=== PATIENT | female | born 1990 | race Caucasian/White ===

== ENCOUNTER 2017-07-11 08:59 | Inpatient (IN) | payer OTHER ==
[2017-07-11 09:17] VITALS: BMI 30.7
--- NOTE | 2017-07-11 09:35 | PDOC ---
History of Present Illness - General Chief Complaint: Vaginal Bleeding Stated Complaint: VAGINAL BLEEDING Time Seen by Provider: 07/11/17 09:26 - History of Present Illness Initial Comments: 27 year old female with history of anemia, prescription pill abuse (on suboxone currently), gastric bypass (2004) presenting after an episode of heavy rectal bleeding and syncope. Per her mother who witnessed the event, the patient said she had to get to the bathroom and prior to arrival to the bathroom released copious bloody stool and syncopized. She did not hit her head. She states she has been drug free for many years. She has a very poor diet at baseline eating mostly "sugary drinks and candy". EMS note on arrical was that she had pressures of 70s systolic in the field which came up after a liter on normal saline. Her pressures were in the 120s on presentation. She has also complained of a pruritic thigh rash bilaterally for the past few days as well. Of note, she has had URI symptoms with vomiting, nausea, myalgias and fevers over the past 3-4 days along with her children. Denies any diarrhea, chest pain, SOB, or syncope before today. Her PCP is [facility]. 07/11/17 09:49 Past History - Past Medical History Allergies/Adverse Reactions: Allergies Allergy/AdvReac Type Severity Reaction Status Date / Time morphine Allergy Severe Swelling Verified 07/11/17 09:12 shellfish derived Allergy Severe Swelling Verified 07/11/17 09:12 enoxaparin [From Lovenox] Allergy Verified 07/11/17 09:12 cats Allergy Uncoded 07/11/17 09:12 Home Medications: Ambulatory Orders Ascorbate Calcium [Vitamin C] 500 mg PO BID 07/11/17 Buprenorphine HCl/Naloxone HCl [Suboxone 12 mg-3 mg Sl Film] 1 each SL BID 07/11 Calcium Carbonate [Calcium] 500 mg PO BID 07/11/17 Cetirizine HCl [All Day Allergy] 10 mg PO DAILY 07/11/17 Cholecalciferol (Vitamin D3) [Vitamin D3] 1,000 unit PO DAILY 07/11/17 Clonazepam [Klonopin] 1 mg PO TID 07/11/17 Cyanocobalamin [Vitamin B12 -] 100 mcg PO DAILY 07/11/17 Ferrous Sulfate 325 mg PO TID 07/11/17 Nicotine [Nicotine Patch 21 mg/24 hr] 1 each TD PRN 07/11/17 Pnv No.95/Ferrous Fum/Folic AC [ Vitamin Tablet] 1 each PO DAILY Ranitidine [Zantac -] 150 mg PO BID 07/11/17 Sennosides [Senna] 8.6 mg PO TID 07/11/17 Thiamine HCl 0 mg PO DAILY 07/11/17 Trazodone HCl 50 mg PO HS 07/11/17 Anemia: Yes Asthma: No Cancer: No Cardiac Disorders: No COPD: No Diabetes: No HTN: No Psychiatric Problems: Yes (ANXIETY) Seizures: No Thyroid Disease: No - Surgical History Cholecystectomy: Yes GI Surgery: Yes (BYPASS) - Reproductive History (#): 1 Para: 0 Cervical CA: No Dysfunctional Uterine Bleeding: No Ectopic : No Endometrial CA: No Endometriosis: No Ovarian CA: No PID: No Polycystic Ovaries: No Therapeutic (s) & number: No (first ) Tubal Ligation: No Spontaneous : 0 Uterine Fibroids: No Oophorectomy: No - Suicide/Smoking/Psychosocial Hx Smoking History: Current every day smoker Have you smoked in the past 12 months: Yes Number of Cigarettes Smoked Daily: 7 Information on smoking cessation initiated: No Hx Alcohol Use: No Drug/Substance Use Hx: Yes Hx Substance Use Treatment: Yes Review of Systems - Review of Systems Constitutional: Yes: Fever. No: Chills, Diaphoresis HEENTM: No: Blurred Vision Respiratory: Yes: Cough. No: Shortness of Breath, Wheezing Cardiac (ROS): No: Chest Pain, Irregular Heart Rate, Chest Tightness ABD/GI: Yes: Nausea, Vomiting. No: Diarrhea : No: Dysuria, Discharge Musculoskeletal: No: Back Pain, Joint Pain Integumentary: Yes: Lesions, Pruritus. No: Bruising, Lumps Neurological: No: Headache, Numbness *Physical Exam - Vital Signs Last Vital Signs Temp Pulse Resp BP Pulse Ox 68 18 120/100 100 07/11/17 09:12 07/11/17 09:12 07/11/17 09:12 07/11/17 09:12 - Physical Exam General Appearance: Yes: Nourished, Appropriately Dressed, Other (Very pale appearing.). No: Apparent Distress HEENT: positive: EOMI, ARNALDO, Normal ENT Inspection Neck: positive: Trachea midline, Normal Thyroid, Supple. negative: Tender, Rigid Respiratory/Chest: positive: Lungs Clear, Normal Breath Sounds. negative: Chest Tender, Respiratory Distress, Accessory Muscle Use Cardiovascular: positive: Regular Rhythm, Tachycardia. negative: Regular Rate Female Pelvic Exam: positive: normal external exam, cervical os closed, normal adnexa, normal size ovaries. negative: vaginal bleeding Rectal Exam: positive: normal rectal tone, melena, heme positive stool, hemorrhoids. negative: heme negative stool Musculoskeletal: negative: Normal Inspection (States that she cannot move her lower extemtieis but sensation completely intact nd has good muscle tone.) Integumentary: positive: Dry, Pale, Cold. negative: Normal Color, Warm Neurologic: positive: Fully Oriented, Alert, Normal Mood/Affect. negative: Motor Strength 5/5 (Per above) ED Treatment Course - LABORATORY CBC & Chemistry Diagram: 07/11/17 09:30 07/11/17 09:30 Medical Decision Making - Medical Decision Making 27 year old female with concern for UGIB bleeding given vaginal exam WNL and rectla exam demonstrating melena and heme positive. Concern for UGIB given history of gastric bypass (true bypass) and melanic stools. HgB 8.1 down from 9.6 so given 1 unit PRBC, 500 NS (+ 1 L given in EMS), with roughly stable vitals (pressures in low 100s and HR 90s-low 100s). Dr. Krause scoped the patient and she went up to the ICU. 07/11/17 15:46 *DC/Admit/Observation/Transfer Diagnosis at time of Disposition: UGIB (upper gastrointestinal bleed) - Discharge Dispostion Admit: Yes - Referrals - Patient Instructions - Post Discharge Activity
[2017-07-11 09:43] LABS: BASO % 0.4 % (0-2.0); EOS % 1.6 % (0-4.5); HEMATOCRIT 24.6 % (32.4-45.2); HEMOGLOBIN 8.1 GM/dL (10.7-15.3); LYMPH % 30.5 % (8-40); MCH 27.8 pg (25.7-33.7); MCHC 32.9 g/dl (32.0-36.0); MEAN CELL VOLUME 84.6 fl (80-96); MEAN PLT VOLUME 7.9 fl (7.5-11.1); MONO % 5.2 % (3.8-10.2); NEUT % 62.3 % (42.8-82.8); PLATELET COUNT 262 K/MM3 (134-434); RBC 2.91 M/mm3 (3.60-5.2); RDW 12.1 % (11.6-15.6); WHITE BLOOD COUNT 7.8 K/mm3 (4.0-10.0)
[2017-07-11 09:51] LABS: URINE APPEARANCE CLEAR; URINE BILIRUBIN NEGATIVE (<2.0 mg/dL); URINE BLOOD NEGATIVE (NEGATIVE); URINE COLOR YELLOW; URINE GLUCOSE (UA) NEGATIVE (NEGATIVE); URINE KETONE NEGATIVE (NEGATIVE); URINE LEUK ESTERASE NEGATIVE (NEGATIVE); URINE NITRITE NEGATIVE (NEGATIVE); URINE PROTEIN NEGATIVE (NEGATIVE); URINE UROBILINOGEN NEGATIVE mg/dL (0.2-1.0)
[2017-07-11 09:58] LABS: INR 1.15 (0.82-1.09)
--- NOTE | 2017-07-11 10:04 | PDOC ---
Attending Attestation - Medical Decision Making 07/11/17 11:[address] Krause at 09:48, 10:22, 11:19. Call was returned promptly and case discussed. Documentation prepared by Soraya Healy, acting as resident medical officer for Tasha Coburn MD. <Soraya Healy - Last Filed: 07/11/17 11:30> - Resident Resident Name: Bri Grant - ED Attending Attestation I have performed the following: I have examined & evaluated the patient, The case was reviewed & discussed with the resident, I agree w/resident's findings & plan, Exceptions are as noted - HPI HPI: 07/11/17 09:47 27-year-old female with a history of gastric bypass surgery in 2004, anemia, distant norco abuse now on suboxone BIBEMS to the emergency department with syncopal episode in the setting of bleeding. Patient reports she's been lightheaded since yesterday. This morning, pt woke up and felt that she needed to have a bowel movement, however on her way to the bathroom became very lightheaded, collapsed and lost consciousness. No head strike. EMS was activated , and patient was found to be hypotensive to 70/20 with copious amounts of dark blood and clots in her underwear. Pt was given 1L NS by EMS, with recovery of her blood pressure to 120/100 on arrival to the emergency department. Here, the patient is pale with malodorous blood all over her lower extremities. No active bleeding noticed. Pelvic exam done by Dr. Grant reveals no blood/foreign body in vaginal vault but melanotic blood in the rectum. No current active bleeding. Pt reports feeling cold and thirsty at this time. Pt denies abd pain, CP, SOB, fevers, chills, vaginal bleeding. States she uses advil almost daily. Reports she just had a negative test. No similar episodes of bleeding before. - Physicial Exam PE: 07/11/17 10:04 agree with resident exam - Critical Care Time Total Critical Care Time: 90 Critical Care Statement: The care of this patient involved high complexity decision making to prevent further life threatening deterioration of the patient 's condition and/or to evaluate & treat vital organ system(s) failure or risk of failure. - Medical Decision Making 07/11/17 10:04 27-year-old female with a history of gastric bypass, anemia presents emergency Department with likely GI bleed. Vitals in the field remarkable for hypotension , however blood pressure is 100/60. Rash on LE c/f thrombocytopenia as well. DDx includes UGIB 2/2 NSAIDS vs DIC (maybe in setting of ) vs severe anemia given hx gastric bypass. Plan: -labs -transfuse, not emergently at this time -monitor -PPI -GI c/s -admit <Tasha Coburn - Last Filed: 07/11/17 22:49>
[2017-07-11 10:17] LABS: ACETAMINOPHEN 4.775 ug/mL; ALBUMIN 2.4 g/dl (3.4-5.0); ANION GAP 7 (8-16); BLOOD UREA NITROGEN 15 mg/dL (7-18); CALCIUM 7.2 mg/dL (8.5-10.1); CHLORIDE 111 mmol/L (98-107); CO2 28 mmol/L (21-32); CREATININE 0.5 mg/dL (0.55-1.02); GLUCOSE,RANDOM 127 mg/dL (74-106); POTASSIUM 4.4 mmol/L (3.5-5.1); SALICYLATE < 1.700 mg/dL; SGOT/AST 20 U/L (15-37); SGPT/ALT 24 U/L (12-78); SODIUM 146 mmol/L (136-145); TOT PROT 4.5 g/dl (6.4-8.2)
[2017-07-11 10:20] LABS: ALK PHOS 40 U/L (45-117)
[2017-07-11 10:23] LABS: BILIRUBIN,TOTAL < 0.1 mg/dL (0.2-1.0)
[2017-07-11] MEDS ORDERED: SODIUM CHLORIDE 0.9% 500 ML INFUS.BAG IV ONE (10:42)
[2017-07-11 11:02] LABS: URINE AMPHETAMINES NEGATIVE ng/ml (CUTOFF=500); URINE BARBITURATES NEGATIVE ng/ml (CUTOFF=200); URINE BENZODIAZEPINES NEGATIVE ng/ml (CUTOFF=200)
[2017-07-11 11:03] LABS: COCAINE, UR NEGATIVE ng/ml (CUTOFF=300); METHADONE, UR NEGATIVE ng/ml (CUTOFF=300); OPIATES, URI NEGATIVE ng/ml (CUTOFF=300); PHENCYCLIDINE,URINE NEGATIVE ng/ml (CUTOFF=25)
[2017-07-11 11:05] LABS: LDH 123 U/L (84-246)
[2017-07-11] MEDS ORDERED: PANTOPRAZOLE SODIUM 40 MG VIAL IVPUSH ONE (11:19)
[2017-07-11] MEDS ORDERED: PANTOPRAZOLE SODIUM 40 MG/100 ML BAG IVPB ONE (11:24)
[2017-07-11] MEDS ORDERED: OCTREOTIDE ACETATE 1,200 MCG in DEXTROSE 5%-WATER - 488 ML IVPB SCH (12:00)
--- NOTE | 2017-07-11 12:20 | CON.GI ---
Consult Consult Specialty:: GI Referred by:: ED Reason for Consultation:: GI bleeding - History of Present Illness History of Present Illness: A 27F with remote hx of gastric bypass for weight loss presents with overnight hx of ?hematochezia, passing out on the way to the bathroom and, documented by EMT, hypotention. Reports lower abdominal crampy pain. Cannot say for sure if bleeding per vagina, or rectum. No nausea, vomiting, hematemesis, jaundice, diarrhea, fever, chills. No history of marginal ulcers, issues with GI since after gastric bypass. EGD ~2011 revealed no abnormalities, per patient. Hx of chronic anemia, per pt's mother. Hx of frequent NSAIDs use, substance abuse. Heme positive stools Hgb 8 g/l, normocytic, normochromic BUN normal - History Source History Provided By: Patient, Family Member, Medical Record - Past Medical History [employer]: Yes: Migraine Gastrointestinal: Yes: Gastritis, Peptic Ulcer Disease ...LMP: 10/20/14 Psych: Yes: Addictions, Anxiety, Depression, Other (PTSD, mood disorder NOS,) Musculoskeletal: Yes: Osteoarthritis - Past Surgical History Past Surgical History: Yes: Bariatric Surgery - Alcohol/Substance Use Hx Alcohol Use: No History of Substance Use: reports: Prescription (no illicit drug use in , follow by substance abuse clinic and psych) - Smoking History Smoking history: Current every day smoker Have you smoked in the past 12 months: Yes Aproximately how many cigarettes per day: 7 - Social History Usual Living Arrangement: Alone ADL: Independent History of Recent Travel: No Home Medications - Allergies Allergies/Adverse Reactions: Allergies Allergy/AdvReac Type Severity Reaction Status Date / Time morphine Allergy Severe Swelling Verified 07/11/17 09:12 shellfish derived Allergy Severe Swelling Verified 07/11/17 09:12 enoxaparin [From Lovenox] Allergy Verified 07/11/17 09:12 cats Allergy Uncoded 07/11/17 09:12 - Home Medications Home Medications: Ambulatory Orders Ascorbate Calcium [Vitamin C] 500 mg PO BID 07/11/17 Buprenorphine HCl/Naloxone HCl [Suboxone 12 mg-3 mg Sl Film] 1 each SL BID 07/11 Calcium Carbonate [Calcium] 500 mg PO BID 07/11/17 Cetirizine HCl [All Day Allergy] 10 mg PO DAILY 07/11/17 Cholecalciferol (Vitamin D3) [Vitamin D3] 1,000 unit PO DAILY 07/11/17 Clonazepam [Klonopin] 1 mg PO TID 07/11/17 Cyanocobalamin [Vitamin B12 -] 100 mcg PO DAILY 07/11/17 Ferrous Sulfate 325 mg PO TID 07/11/17 Nicotine [Nicotine Patch 21 mg/24 hr] 1 each TD PRN 07/11/17 Pnv No.95/Ferrous Fum/Folic AC [ Vitamin Tablet] 1 each PO DAILY Ranitidine [Zantac -] 150 mg PO BID 07/11/17 Sennosides [Senna] 8.6 mg PO TID 07/11/17 Thiamine HCl 0 mg PO DAILY 07/11/17 Trazodone HCl 50 mg PO HS 07/11/17 Family Disease History - Family Disease History Family History: Unremarkable Review of Systems Findings/Remarks: as per HPI, H&P Physical Exam-GI Vital Signs: Vital Signs Temperature 98.1 F 07/11/17 12:05 Pulse Rate 64 07/11/17 12:05 Respiratory Rate 12 07/11/17 12:05 Blood Pressure 115/59 07/11/17 12:05 O2 Sat by Pulse Oximetry (%) 99 07/11/17 12:05 Constitutional: Yes: No Distress, Pallor Eyes: Yes: Conjunctiva Clear HENT: Yes: Atraumatic, Other (lip ring) Neck: Yes: Supple Cardiovascular: Yes: Regular Rate and Rhythm. No: Bradycardia, Tachycardia Respiratory: Yes: Regular Gastrointestinal Inspection: No: Ascites, Distention ...Palpate: Yes: Tenderness (lowe abdomen) ...Rectal Exam: Yes: Guaiac Positive Neurological: Yes: Alert, Oriented Labs: CBC, BMP 07/11/17 09:30 07/11/17 09:40 INR, PTT INR 1.15 (0.82-1.09) H 07/11/17 09:30 Fibrinogen 166.0 mg/dL (238-498) L 07/11/17 09:32 Laboratory Tests 07/11/17 07/11/17 07/11/17 09:30 09:30 09:30 WBC 7.8 RBC 2.91 L Hgb 8.1 L D Hct 24.6 L D MCV 84.6 MCH 27.8 MCHC 32.9 RDW 12.1 Plt Count 262 D MPV 7.9 Neutrophils % 62.3 Lymphocytes % 30.5 D Monocytes % 5.2 Eosinophils % 1.6 Basophils % 0.4 PT with INR 13.00 H INR 1.15 H Fibrinogen D-Dimer Sodium 146 H Potassium 4.4 Chloride 111 H Carbon Dioxide 28 Anion Gap 7 L BUN 15 Creatinine 0.5 L Creat Clearance w eGFR > 60 Random Glucose 127 H Specific Cove Lactic Acid Calcium 7.2 L Total Bilirubin < 0.1 L D AST 20 ALT 24 Alkaline Phosphatase 40 L LD Total Creatine Kinase 60 Troponin I < 0.02 Total Protein 4.5 L Albumin 2.4 L Beta HCG, Quant Serum , Qual Urine Color Urine Appearance Urine pH Ur Specific Cove Urine Protein Urine Glucose (UA) Urine Ketones Urine Blood Urine Nitrite Urine Bilirubin Urine Urobilinogen Ur Leukocyte Esterase Stool Occult Blood Urine Butalbital Ur Butalbital Confirm Salicylates < 1.700 Opiates Screen Urine Opiates Screen Meperidine Urine Normeperidine U Normeperidine GC/MS Urine Codeine U Codeine Confrm GC/MS Urine Morphine Morphine Confirm GC/MS Urine Hydrocodone Ur Hydrocodone (GC/MS) Urine Oxycodone Ur Oxycodone GC/MS Oxymorphone Confirm Urine Oxymorphone U Oxycodone/Oxymorphon Methadone Screen Ur Methadone Ur Methadone Confirm Ur Hydromorphone Ur Hydromorphone (GC/MS) Urine Propoxyphene U Propoxyphene/M GC/MS Acetaminophen 4.775 Barbiturate Screen Ur Barbiturates Screen Urine Barbiturates Phencyclidine Screen Ur Phencyclidine (PCP) Ur PCP Confirm (GC/MS) Amphetamines Amphetamines Grp GC/MS Ur Amphetamines Screen Urine Amphetamine Ur Amphetamines, Quant Methamphetamine Methamphetamine GC/MS MDMA (Ecstasy) Screen Urine Amobarbital Ur Amobarbital GC/MS Urine Pentobarbital U Pentobarbital GC/MS Urine Phenobarbital U Phenobarbital GC/MS Urine Secobarbital U Secobarbital GC/MS Urine Alprazolam U OH-Alprazolam GC/MS Benzodiazepines Screen U Benzodiazepines Scrn Urine Clonazepam U 7-Amino Clonazep GC/MS Ur Nordiazepam Ur Nordiazepam GC/MS Flurazepam Flurazepam Confirm Lorazepam Urine Lorazepam Ur Oxazepam U Oxazepam Confm GC/MS Urine Temazepam Ur Temazepam (GC/MS) Urine Triazolam Ur Triazolam (GC/MS) Meperidine (GC/MS) Ur Meperidine Cocaine Screen Cocaine & Metabolite Urine Cocaine Benzoylecgonine Cannabinoids Urine Cannabinoids U Marijuana (THC) Screen Urine Marijuana (THC) Urine Ethyl Alcohol Blood Type Antibody Screen Crossmatch 07/11/17 07/11/17 07/11/17 09:30 09:30 09:30 WBC RBC Hgb Hct MCV MCH MCHC RDW Plt Count MPV Neutrophils % Lymphocytes % Monocytes % Eosinophils % Basophils % PT with INR INR Fibrinogen D-Dimer Sodium Potassium Chloride Carbon Dioxide Anion Gap BUN Creatinine Creat Clearance w eGFR Random Glucose Specific Cove Lactic Acid 4.2 H* Calcium Total Bilirubin AST ALT Alkaline Phosphatase LD Total Creatine Kinase Troponin I Total Protein Albumin Beta HCG, Quant Serum , Qual Urine Color Urine Appearance Urine pH Ur Specific Cove Urine Protein Urine Glucose (UA) Urine Ketones Urine Blood Urine Nitrite Urine Bilirubin Urine Urobilinogen Ur Leukocyte Esterase Stool Occult Blood Urine Butalbital Ur Butalbital Confirm Salicylates Opiates Screen Urine Opiates Screen Meperidine Urine Normeperidine U Normeperidine GC/MS Urine Codeine U Codeine Confrm GC/MS Urine Morphine Morphine Confirm GC/MS Urine Hydrocodone Ur Hydrocodone (GC/MS) Urine Oxycodone Ur Oxycodone GC/MS Oxymorphone Confirm Urine Oxymorphone U Oxycodone/Oxymorphon Methadone Screen Ur Methadone Ur Methadone Confirm Ur Hydromorphone Ur Hydromorphone (GC/MS) Urine Propoxyphene U Propoxyphene/M GC/MS Acetaminophen Barbiturate Screen Ur Barbiturates Screen Urine Barbiturates Phencyclidine Screen Ur Phencyclidine (PCP) Ur PCP Confirm (GC/MS) Amphetamines Amphetamines Grp GC/MS Ur Amphetamines Screen Urine Amphetamine Ur Amphetamines, Quant Methamphetamine Methamphetamine GC/MS MDMA (Ecstasy) Screen Urine Amobarbital Ur Amobarbital GC/MS Urine Pentobarbital U Pentobarbital GC/MS Urine Phenobarbital U Phenobarbital GC/MS Urine Secobarbital U Secobarbital GC/MS Urine Alprazolam U OH-Alprazolam GC/MS Benzodiazepines Screen U Benzodiazepines Scrn Urine Clonazepam U 7-Amino Clonazep GC/MS Ur Nordiazepam Ur Nordiazepam GC/MS Flurazepam Flurazepam Confirm Lorazepam Urine Lorazepam Ur Oxazepam U Oxazepam Confm GC/MS Urine Temazepam Ur Temazepam (GC/MS) Urine Triazolam Ur Triazolam (GC/MS) Meperidine (GC/MS) Ur Meperidine Cocaine Screen Cocaine & Metabolite Urine Cocaine Benzoylecgonine Cannabinoids Urine Cannabinoids U Marijuana (THC) Screen Urine Marijuana (THC) Urine Ethyl Alcohol Blood Type A POSITIVE Cancelled Antibody Screen Negative Cancelled Crossmatch See Detail 07/11/17 07/11/17 07/11/17 09:32 09:32 09:40 WBC RBC Hgb Hct MCV MCH MCHC RDW Plt Count MPV Neutrophils % Lymphocytes % Monocytes % Eosinophils % Basophils % PT with INR INR Fibrinogen 166.0 L D-Dimer 260 Sodium Potassium Chloride Carbon Dioxide Anion Gap BUN Creatinine Cancelled Creat Clearance w eGFR Random Glucose Specific Cove Cancelled Lactic Acid Calcium Total Bilirubin AST ALT Alkaline Phosphatase LD Total 123 Creatine Kinase Troponin I Total Protein Albumin Beta HCG, Quant < 1.0 Serum , Qual Urine Color Urine Appearance Urine pH Ur Specific Cove Urine Protein Urine Glucose (UA) Urine Ketones Urine Blood Urine Nitrite Urine Bilirubin Urine Urobilinogen Ur Leukocyte Esterase Stool Occult Blood Urine Butalbital Cancelled Ur Butalbital Confirm Cancelled Salicylates Opiates Screen Urine Opiates Screen Cancelled Meperidine Cancelled Urine Normeperidine Cancelled U Normeperidine GC/MS Cancelled Urine Codeine Cancelled U Codeine Confrm GC/MS Cancelled Urine Morphine Cancelled Morphine Confirm GC/MS Cancelled Urine Hydrocodone Cancelled Ur Hydrocodone (GC/MS) Cancelled Urine Oxycodone Cancelled Ur Oxycodone GC/MS Cancelled Oxymorphone Confirm Cancelled Urine Oxymorphone Cancelled U Oxycodone/Oxymorphon Cancelled Methadone Screen Ur Methadone Cancelled Ur Methadone Confirm Cancelled Ur Hydromorphone Cancelled Ur Hydromorphone (GC/MS) Cancelled Urine Propoxyphene Cancelled U Propoxyphene/M GC/MS Cancelled Acetaminophen Barbiturate Screen Ur Barbiturates Screen Cancelled Urine Barbiturates Cancelled Phencyclidine Screen Ur Phencyclidine (PCP) Cancelled Ur PCP Confirm (GC/MS) Cancelled Amphetamines Cancelled Amphetamines Grp GC/MS Cancelled Ur Amphetamines Screen Urine Amphetamine Cancelled Ur Amphetamines, Quant Cancelled Methamphetamine Cancelled Methamphetamine GC/MS Cancelled MDMA (Ecstasy) Screen Urine Amobarbital Cancelled Ur Amobarbital GC/MS Cancelled Urine Pentobarbital Cancelled U Pentobarbital GC/MS Cancelled Urine Phenobarbital Cancelled U Phenobarbital GC/MS Cancelled Urine Secobarbital Cancelled U Secobarbital GC/MS Cancelled Urine Alprazolam Cancelled U OH-Alprazolam GC/MS Cancelled Benzodiazepines Screen U Benzodiazepines Scrn Cancelled Urine Clonazepam Cancelled U 7-Amino Clonazep GC/MS Cancelled Ur Nordiazepam Cancelled Ur Nordiazepam GC/MS Cancelled Flurazepam Cancelled Flurazepam Confirm Cancelled Lorazepam Cancelled Urine Lorazepam Cancelled Ur Oxazepam Cancelled U Oxazepam Confm GC/MS Cancelled Urine Temazepam Cancelled Ur Temazepam (GC/MS) Cancelled Urine Triazolam Cancelled Ur Triazolam (GC/MS) Cancelled Meperidine (GC/MS) Cancelled Ur Meperidine Cancelled Cocaine Screen Cocaine & Metabolite Cancelled Urine Cocaine Cancelled Benzoylecgonine Cancelled Cannabinoids Cancelled Urine Cannabinoids Cancelled U Marijuana (THC) Screen Urine Marijuana (THC) Cancelled Urine Ethyl Alcohol Cancelled Blood Type Antibody Screen Crossmatch 07/11/17 07/11/17 07/11/17 09:40 09:40 10:38 WBC RBC Hgb Hct MCV MCH MCHC RDW Plt Count MPV Neutrophils % Lymphocytes % Monocytes % Eosinophils % Basophils % PT with INR INR Fibrinogen D-Dimer Sodium Potassium Chloride Carbon Dioxide Anion Gap BUN Creatinine Creat Clearance w eGFR Random Glucose Specific Cove Lactic Acid Calcium Total Bilirubin AST ALT Alkaline Phosphatase LD Total Creatine Kinase Troponin I Total Protein Albumin Beta HCG, Quant Serum , Qual Urine Color Yellow Urine Appearance Clear Urine pH 6.0 Ur Specific Cove 1.027 Urine Protein Negative Urine Glucose (UA) Negative Urine Ketones Negative Urine Blood Negative Urine Nitrite Negative Urine Bilirubin Negative Urine Urobilinogen Negative Ur Leukocyte Esterase Negative Stool Occult Blood Positive Urine Butalbital Ur Butalbital Confirm Salicylates Opiates Screen Negative Urine Opiates Screen Meperidine Urine Normeperidine U Normeperidine GC/MS Urine Codeine U Codeine Confrm GC/MS Urine Morphine Morphine Confirm GC/MS Urine Hydrocodone Ur Hydrocodone (GC/MS) Urine Oxycodone Ur Oxycodone GC/MS Oxymorphone Confirm Urine Oxymorphone U Oxycodone/Oxymorphon Methadone Screen Negative Ur Methadone Ur Methadone Confirm Ur Hydromorphone Ur Hydromorphone (GC/MS) Urine Propoxyphene U Propoxyphene/M GC/MS Acetaminophen Barbiturate Screen Negative Ur Barbiturates Screen Urine Barbiturates Phencyclidine Screen Negative Ur Phencyclidine (PCP) Ur PCP Confirm (GC/MS) Amphetamines Amphetamines Grp GC/MS Ur Amphetamines Screen Negative Urine Amphetamine Ur Amphetamines, Quant Methamphetamine Methamphetamine GC/MS MDMA (Ecstasy) Screen Negative Urine Amobarbital Ur Amobarbital GC/MS Urine Pentobarbital U Pentobarbital GC/MS Urine Phenobarbital U Phenobarbital GC/MS Urine Secobarbital U Secobarbital GC/MS Urine Alprazolam U OH-Alprazolam GC/MS Benzodiazepines Screen Negative U Benzodiazepines Scrn Urine Clonazepam U 7-Amino Clonazep GC/MS Ur Nordiazepam Ur Nordiazepam GC/MS Flurazepam Flurazepam Confirm Lorazepam Urine Lorazepam Ur Oxazepam U Oxazepam Confm GC/MS Urine Temazepam Ur Temazepam (GC/MS) Urine Triazolam Ur Triazolam (GC/MS) Meperidine (GC/MS) Ur Meperidine Cocaine Screen Negative Cocaine & Metabolite Urine Cocaine Benzoylecgonine Cannabinoids Urine Cannabinoids U Marijuana (THC) Screen Negative Urine Marijuana (THC) Urine Ethyl Alcohol Blood Type Antibody Screen Crossmatch 07/11/17 11:00 WBC RBC Hgb Hct MCV MCH MCHC RDW Plt Count MPV Neutrophils % Lymphocytes % Monocytes % Eosinophils % Basophils % PT with INR INR Fibrinogen D-Dimer Sodium Potassium Chloride Carbon Dioxide Anion Gap BUN Creatinine Creat Clearance w eGFR Random Glucose Specific Cove Lactic Acid Calcium Total Bilirubin AST ALT Alkaline Phosphatase LD Total Creatine Kinase Troponin I Total Protein Albumin Beta HCG, Quant Serum , Qual Negative Urine Color Urine Appearance Urine pH Ur Specific Cove Urine Protein Urine Glucose (UA) Urine Ketones Urine Blood Urine Nitrite Urine Bilirubin Urine Urobilinogen Ur Leukocyte Esterase Stool Occult Blood Urine Butalbital Ur Butalbital Confirm Salicylates Opiates Screen Urine Opiates Screen Meperidine Urine Normeperidine U Normeperidine GC/MS Urine Codeine U Codeine Confrm GC/MS Urine Morphine Morphine Confirm GC/MS Urine Hydrocodone Ur Hydrocodone (GC/MS) Urine Oxycodone Ur Oxycodone GC/MS Oxymorphone Confirm Urine Oxymorphone U Oxycodone/Oxymorphon Methadone Screen Ur Methadone Ur Methadone Confirm Ur Hydromorphone Ur Hydromorphone (GC/MS) Urine Propoxyphene U Propoxyphene/M GC/MS Acetaminophen Barbiturate Screen Ur Barbiturates Screen Urine Barbiturates Phencyclidine Screen Ur Phencyclidine (PCP) Ur PCP Confirm (GC/MS) Amphetamines Amphetamines Grp GC/MS Ur Amphetamines Screen Urine Amphetamine Ur Amphetamines, Quant Methamphetamine Methamphetamine GC/MS MDMA (Ecstasy) Screen Urine Amobarbital Ur Amobarbital GC/MS Urine Pentobarbital U Pentobarbital GC/MS Urine Phenobarbital U Phenobarbital GC/MS Urine Secobarbital U Secobarbital GC/MS Urine Alprazolam U OH-Alprazolam GC/MS Benzodiazepines Screen U Benzodiazepines Scrn Urine Clonazepam U 7-Amino Clonazep GC/MS Ur Nordiazepam Ur Nordiazepam GC/MS Flurazepam Flurazepam Confirm Lorazepam Urine Lorazepam Ur Oxazepam U Oxazepam Confm GC/MS Urine Temazepam Ur Temazepam (GC/MS) Urine Triazolam Ur Triazolam (GC/MS) Meperidine (GC/MS) Ur Meperidine Cocaine Screen Cocaine & Metabolite Urine Cocaine Benzoylecgonine Cannabinoids Urine Cannabinoids U Marijuana (THC) Screen Urine Marijuana (THC) Urine Ethyl Alcohol Blood Type Antibody Screen Crossmatch Problem List - Problems (1) GI bleeding Code(s): K92.2 - GASTROINTESTINAL HEMORRHAGE, UNSPECIFIED (2) History of gastric bypass Code(s): Z98.84 - BARIATRIC SURGERY STATUS (3) Normocytic normochromic anemia Code(s): D64.9 - ANEMIA, UNSPECIFIED Assessment/Plan A 27F with symptomatic, acute on chronic anemia. r/o upper GI bleeding from marginal/other ulcer. Agree with current management by the ED team EGD today Will follow
[2017-07-11] MEDS ORDERED: OCTREOTIDE ACETATE 100 MCG/1 ML ONE (12:41)
[2017-07-11] MEDS ORDERED: PROPOFOL 20 ML ONE ×3 (12:43)
[2017-07-11] MEDS ORDERED: SUCCINYLCHOLINE CHLORIDE 200 MG/10 ML VIAL ONE (12:43)
[2017-07-11] MEDS ORDERED: LIDOCAINE HCL/PF 2% SDV 5ML VIAL ONE (12:43)
[2017-07-11] MEDS ORDERED: SODIUM CHLORIDE 1,000 ML IV SCH ×2 (12:45→22:05)
[2017-07-11] MEDS ORDERED: EPINEPHrine 1:10,000 (P-F SYR) 1 MG/10 ML DISP.SYRIN IVPUSH ONE (13:40)
--- NOTE | 2017-07-11 13:50 | PROC ---
Endoscopy Procedure Endoscopy procedure completed. Please see scanned procedure report. 1 cm deep, marginal ulcer with attached fresh blood clot was found. After injecting 8 cc of epi into the ulcer base, the clot was detached. A visible vessel was identified and successfully clipped with 2 out of 3 clips. The ulcer bed was coagulated with a heater probe at 20 and 15 settings. The uler was observed for bleeding and none was noted. Biopsies of the gastric pouch (~8 cm) taken. PPI IV drip Carafate 1gm po qid NPO today Clear liquid diet tomorrow, if no events. Follow biopsies
[2017-07-11] MEDS ORDERED: ONDANSETRON 4 MG/2 ML VIAL IVPUSH ONE (14:02)
[2017-07-11] MEDS ORDERED: EPINEPHrine 1:10,000 (P-F SYR) 1 MG/10 ML DISP.SYRIN ONE (14:07)
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
--- NOTE | 2017-07-11 14:42 | HP ---
CHIEF COMPLAINT: Syncope PCP: Dr. Samuels HISTORY OF PRESENT ILLNESS: 27 year old F with pmh of gastric bypass, cholecystectomy (2004), anemia, chronic advil abuse, opioid abuse (on suboxone 12/2- 24 pills per day), anxiety , and nictine abuse preseented after a syncopal episode and recta bleeidng. History obtained from mother as patient was non compliant with history and physical examination. Mom states patient got up to use the bathroom and on the walk to the bathroom fell. She had an explosive bloody bowel movement on the gruond with mulitple clots and then lost consciousness. No reported head trauma. Mom called EMS. She was found to be hypotensive. Patient went for upper endoscopy, and found to have a 1 cm deep marginal ulcer, which was clipped. Patient sent to ICU. Currently received 2 units of PRBC. Recent Travel: denies PAST MEDICAL HISTORY: as per hpi PAST SURGICAL HISTORY: as per hpi Social History: Smokin ppd x 10 yrs Alcohol: denies Drugs: denies Family History: Allergies morphine Allergy (Severe, Verified 07/11/17 09:12) Swelling shellfish derived Allergy (Severe, Verified 07/11/17 09:12) Swelling enoxaparin [From Lovenox] Allergy (Verified 07/11/17 09:12) cats Allergy (Uncoded 07/11/17 09:12) HOME MEDICATIONS: Home Medications Medication Instructions Recorded Ascorbate Calcium [Vitamin C] 500 mg PO BID 07/11/17 Buprenorphine HCl/Naloxone HCl 1 each SL BID 07/11/17 [Suboxone 12 mg-3 mg Sl Film] Calcium Carbonate [Calcium] 500 mg PO BID 07/11/17 Cetirizine HCl [All Day Allergy] 10 mg PO DAILY 07/11/17 Cholecalciferol (Vitamin D3) 1,000 unit PO DAILY 07/11/17 [Vitamin D3] Clonazepam [Klonopin] 1 mg PO TID 07/11/17 Cyanocobalamin [Vitamin B12 -] 100 mcg PO DAILY 07/11/17 Ferrous Sulfate 325 mg PO TID 07/11/17 Nicotine [Nicotine Patch 21 mg/24 1 each TD PRN 07/11/17 hr] Pnv No.95/Ferrous Fum/Folic AC 1 each PO DAILY 07/11/17 [ Vitamin Tablet] Ranitidine [Zantac -] 150 mg PO BID 07/11/17 Sennosides [Senna] 8.6 mg PO TID 07/11/17 Thiamine HCl 0 mg PO DAILY 07/11/17 Trazodone HCl 50 mg PO HS 07/11/17 REVIEW OF SYSTEMS--unable to be obtained--poor historian/noncompliance PHYSICAL EXAMINATION Vital Signs - 24 hr 07/11/17 07/11/17 07/11/17 09:12 09:30 10:02 Temperature 98.7 F Pulse Rate 68 Pulse Rate [ 83 Apical] Respiratory 18 18 Rate Blood Pressure 120/100 Blood Pressure 105/58 105/61 [Left Arm] O2 Sat by Pulse 100 100 Oximetry (%) 07/11/17 07/11/17 07/11/17 10:30 11:10 11:31 Temperature 98.3 F Pulse Rate Pulse Rate [ 85 75 64 Apical] Respiratory 20 16 14 Rate Blood Pressure Blood Pressure 101/55 97/58 112/60 [Left Arm] O2 Sat by Pulse 100 100 100 Oximetry (%) 07/11/17 07/11/17 12:05 12:15 Temperature 98.1 F Pulse Rate Pulse Rate [ 64 73 Apical] Respiratory 12 20 Rate Blood Pressure Blood Pressure 115/59 116/62 [Left Arm] O2 Sat by Pulse 99 99 Oximetry (%) GENERAL: Awake, lethargic, not responsive to questions HEAD: Normal with no signs of trauma. Lungs: breath sounds equal, poor inspiratory effort, clear bilaterally. No crackles/rales/rhonchi. Heart: RRR, S1S2, no murmurs/rubs/gallops Rest of examination deferred by patient Laboratory Results - last 24 hr 07/11/17 07/11/17 07/11/17 09:30 09:30 09:30 WBC 7.8 RBC 2.91 L Hgb 8.1 L D Hct 24.6 L D MCV 84.6 MCH 27.8 MCHC 32.9 RDW 12.1 Plt Count 262 D MPV 7.9 Neutrophils % 62.3 Lymphocytes % 30.5 D Monocytes % 5.2 Eosinophils % 1.6 Basophils % 0.4 PT with INR 13.00 H INR 1.15 H Fibrinogen D-Dimer Sodium 146 H Potassium 4.4 Chloride 111 H Carbon Dioxide 28 Anion Gap 7 L BUN 15 Creatinine 0.5 L Creat Clearance w eGFR > 60 Random Glucose 127 H Specific [place] Lactic Acid Calcium 7.2 L Total Bilirubin < 0.1 L D AST 20 ALT 24 Alkaline Phosphatase 40 L LD Total Creatine Kinase 60 Troponin I < 0.02 Total Protein 4.5 L Albumin 2.4 L Beta HCG, Quant Serum , Qual Urine Color Urine Appearance Urine pH Ur Specific [place] Urine Protein Urine Glucose (UA) Urine Ketones Urine Blood Urine Nitrite Urine Bilirubin Urine Urobilinogen Ur Leukocyte Esterase Stool Occult Blood Urine Butalbital Ur Butalbital Confirm Salicylates < 1.700 Opiates Screen Urine Opiates Screen Meperidine Urine Normeperidine U Normeperidine GC/MS Urine Codeine U Codeine Confrm GC/MS Urine Morphine Morphine Confirm GC/MS Urine Hydrocodone Ur Hydrocodone (GC/MS) Urine Oxycodone Ur Oxycodone GC/MS Oxymorphone Confirm Urine Oxymorphone U Oxycodone/Oxymorphon Methadone Screen Ur Methadone Ur Methadone Confirm Ur Hydromorphone Ur Hydromorphone (GC/MS) Urine Propoxyphene U Propoxyphene/M GC/MS Acetaminophen 4.775 Barbiturate Screen Ur Barbiturates Screen Urine Barbiturates Phencyclidine Screen Ur Phencyclidine (PCP) Ur PCP Confirm (GC/MS) Amphetamines Amphetamines Grp GC/MS Ur Amphetamines Screen Urine Amphetamine Ur Amphetamines, Quant Methamphetamine Methamphetamine GC/MS MDMA (Ecstasy) Screen Urine Amobarbital Ur Amobarbital GC/MS Urine Pentobarbital U Pentobarbital GC/MS Urine Phenobarbital U Phenobarbital GC/MS Urine Secobarbital U Secobarbital GC/MS Urine Alprazolam U [place]-Alprazolam GC/MS Benzodiazepines Screen U Benzodiazepines Scrn Urine Clonazepam U 7-Amino Clonazep GC/MS Ur Nordiazepam Ur Nordiazepam GC/MS Flurazepam Flurazepam Confirm Lorazepam Urine Lorazepam Ur Oxazepam U Oxazepam Confm GC/MS Urine Temazepam Ur Temazepam (GC/MS) Urine Triazolam Ur Triazolam (GC/MS) Meperidine (GC/MS) Ur Meperidine Cocaine Screen Cocaine & Metabolite Urine Cocaine Benzoylecgonine Cannabinoids Urine Cannabinoids U Marijuana (THC) Screen Urine Marijuana (THC) Urine Ethyl Alcohol Blood Type Antibody Screen Crossmatch 07/11/17 07/11/17 07/11/17 09:30 09:30 09:30 WBC RBC Hgb Hct MCV MCH MCHC RDW Plt Count MPV Neutrophils % Lymphocytes % Monocytes % Eosinophils % Basophils % PT with INR INR Fibrinogen D-Dimer Sodium Potassium Chloride Carbon Dioxide Anion Gap BUN Creatinine Creat Clearance w eGFR Random Glucose Specific [place] Lactic Acid 4.2 H* Calcium Total Bilirubin AST ALT Alkaline Phosphatase LD Total Creatine Kinase Troponin I Total Protein Albumin Beta HCG, Quant Serum , Qual Urine Color Urine Appearance Urine pH Ur Specific [place] Urine Protein Urine Glucose (UA) Urine Ketones Urine Blood Urine Nitrite Urine Bilirubin Urine Urobilinogen Ur Leukocyte Esterase Stool Occult Blood Urine Butalbital Ur Butalbital Confirm Salicylates Opiates Screen Urine Opiates Screen Meperidine Urine Normeperidine U Normeperidine GC/MS Urine Codeine U Codeine Confrm GC/MS Urine Morphine Morphine Confirm GC/MS Urine Hydrocodone Ur Hydrocodone (GC/MS) Urine Oxycodone Ur Oxycodone GC/MS Oxymorphone Confirm Urine Oxymorphone U Oxycodone/Oxymorphon Methadone Screen Ur Methadone Ur Methadone Confirm Ur Hydromorphone Ur Hydromorphone (GC/MS) Urine Propoxyphene U Propoxyphene/M GC/MS Acetaminophen Barbiturate Screen Ur Barbiturates Screen Urine Barbiturates Phencyclidine Screen Ur Phencyclidine (PCP) Ur PCP Confirm (GC/MS) Amphetamines Amphetamines Grp GC/MS Ur Amphetamines Screen Urine Amphetamine Ur Amphetamines, Quant Methamphetamine Methamphetamine GC/MS MDMA (Ecstasy) Screen Urine Amobarbital Ur Amobarbital GC/MS Urine Pentobarbital U Pentobarbital GC/MS Urine Phenobarbital U Phenobarbital GC/MS Urine Secobarbital U Secobarbital GC/MS Urine Alprazolam U [place]-Alprazolam GC/MS Benzodiazepines Screen U Benzodiazepines Scrn Urine Clonazepam U 7-Amino Clonazep GC/MS Ur Nordiazepam Ur Nordiazepam GC/MS Flurazepam Flurazepam Confirm Lorazepam Urine Lorazepam Ur Oxazepam U Oxazepam Confm GC/MS Urine Temazepam Ur Temazepam (GC/MS) Urine Triazolam Ur Triazolam (GC/MS) Meperidine (GC/MS) Ur Meperidine Cocaine Screen Cocaine & Metabolite Urine Cocaine Benzoylecgonine Cannabinoids Urine Cannabinoids U Marijuana (THC) Screen Urine Marijuana (THC) Urine Ethyl Alcohol Blood Type A POSITIVE Cancelled Antibody Screen Negative Cancelled Crossmatch See Detail 07/11/17 07/11/17 07/11/17 09:32 09:32 09:40 WBC RBC Hgb Hct MCV MCH MCHC RDW Plt Count MPV Neutrophils % Lymphocytes % Monocytes % Eosinophils % Basophils % PT with INR INR Fibrinogen 166.0 L D-Dimer 260 Sodium Potassium Chloride Carbon Dioxide Anion Gap BUN Creatinine Cancelled Creat Clearance w eGFR Random Glucose Specific [place] Cancelled Lactic Acid Calcium Total Bilirubin AST ALT Alkaline Phosphatase LD Total 123 Creatine Kinase Troponin I Total Protein Albumin Beta HCG, Quant < 1.0 Serum , Qual Urine Color Urine Appearance Urine pH Ur Specific [place] Urine Protein Urine Glucose (UA) Urine Ketones Urine Blood Urine Nitrite Urine Bilirubin Urine Urobilinogen Ur Leukocyte Esterase Stool Occult Blood Urine Butalbital Cancelled Ur Butalbital Confirm Cancelled Salicylates Opiates Screen Urine Opiates Screen Cancelled Meperidine Cancelled Urine Normeperidine Cancelled U Normeperidine GC/MS Cancelled Urine Codeine Cancelled U Codeine Confrm GC/MS Cancelled Urine Morphine Cancelled Morphine Confirm GC/MS Cancelled Urine Hydrocodone Cancelled Ur Hydrocodone (GC/MS) Cancelled Urine Oxycodone Cancelled Ur Oxycodone GC/MS Cancelled Oxymorphone Confirm Cancelled Urine Oxymorphone Cancelled U Oxycodone/Oxymorphon Cancelled Methadone Screen Ur Methadone Cancelled Ur Methadone Confirm Cancelled Ur Hydromorphone Cancelled Ur Hydromorphone (GC/MS) Cancelled Urine Propoxyphene Cancelled U Propoxyphene/M GC/MS Cancelled Acetaminophen Barbiturate Screen Ur Barbiturates Screen Cancelled Urine Barbiturates Cancelled Phencyclidine Screen Ur Phencyclidine (PCP) Cancelled Ur PCP Confirm (GC/MS) Cancelled Amphetamines Cancelled Amphetamines Grp GC/MS Cancelled Ur Amphetamines Screen Urine Amphetamine Cancelled Ur Amphetamines, Quant Cancelled Methamphetamine Cancelled Methamphetamine GC/MS Cancelled MDMA (Ecstasy) Screen Urine Amobarbital Cancelled Ur Amobarbital GC/MS Cancelled Urine Pentobarbital Cancelled U Pentobarbital GC/MS Cancelled Urine Phenobarbital Cancelled U Phenobarbital GC/MS Cancelled Urine Secobarbital Cancelled U Secobarbital GC/MS Cancelled Urine Alprazolam Cancelled U [place]-Alprazolam GC/MS Cancelled Benzodiazepines Screen U Benzodiazepines Scrn Cancelled Urine Clonazepam Cancelled U 7-Amino Clonazep GC/MS Cancelled Ur Nordiazepam Cancelled Ur Nordiazepam GC/MS Cancelled Flurazepam Cancelled Flurazepam Confirm Cancelled Lorazepam Cancelled Urine Lorazepam Cancelled Ur Oxazepam Cancelled U Oxazepam Confm GC/MS Cancelled Urine Temazepam Cancelled Ur Temazepam (GC/MS) Cancelled Urine Triazolam Cancelled Ur Triazolam (GC/MS) Cancelled Meperidine (GC/MS) Cancelled Ur Meperidine Cancelled Cocaine Screen Cocaine & Metabolite Cancelled Urine Cocaine Cancelled Benzoylecgonine Cancelled Cannabinoids Cancelled Urine Cannabinoids Cancelled U Marijuana (THC) Screen Urine Marijuana (THC) Cancelled Urine Ethyl Alcohol Cancelled Blood Type Antibody Screen Crossmatch 07/11/17 07/11/17 07/11/17 09:40 09:40 10:38 WBC RBC Hgb Hct MCV MCH MCHC RDW Plt Count MPV Neutrophils % Lymphocytes % Monocytes % Eosinophils % Basophils % PT with INR INR Fibrinogen D-Dimer Sodium Potassium Chloride Carbon Dioxide Anion Gap BUN Creatinine Creat Clearance w eGFR Random Glucose Specific [place] Lactic Acid Calcium Total Bilirubin AST ALT Alkaline Phosphatase LD Total Creatine Kinase Troponin I Total Protein Albumin Beta HCG, Quant Serum , Qual Urine Color Yellow Urine Appearance Clear Urine pH 6.0 Ur Specific [place] 1.027 Urine Protein Negative Urine Glucose (UA) Negative Urine Ketones Negative Urine Blood Negative Urine Nitrite Negative Urine Bilirubin Negative Urine Urobilinogen Negative Ur Leukocyte Esterase Negative Stool Occult Blood Positive Urine Butalbital Ur Butalbital Confirm Salicylates Opiates Screen Negative Urine Opiates Screen Meperidine Urine Normeperidine U Normeperidine GC/MS Urine Codeine U Codeine Confrm GC/MS Urine Morphine Morphine Confirm GC/MS Urine Hydrocodone Ur Hydrocodone (GC/MS) Urine Oxycodone Ur Oxycodone GC/MS Oxymorphone Confirm Urine Oxymorphone U Oxycodone/Oxymorphon Methadone Screen Negative Ur Methadone Ur Methadone Confirm Ur Hydromorphone Ur Hydromorphone (GC/MS) Urine Propoxyphene U Propoxyphene/M GC/MS Acetaminophen Barbiturate Screen Negative Ur Barbiturates Screen Urine Barbiturates Phencyclidine Screen Negative Ur Phencyclidine (PCP) Ur PCP Confirm (GC/MS) Amphetamines Amphetamines Grp GC/MS Ur Amphetamines Screen Negative Urine Amphetamine Ur Amphetamines, Quant Methamphetamine Methamphetamine GC/MS MDMA (Ecstasy) Screen Negative Urine Amobarbital Ur Amobarbital GC/MS Urine Pentobarbital U Pentobarbital GC/MS Urine Phenobarbital U Phenobarbital GC/MS Urine Secobarbital U Secobarbital GC/MS Urine Alprazolam U [place]-Alprazolam GC/MS Benzodiazepines Screen Negative U Benzodiazepines Scrn Urine Clonazepam U 7-Amino Clonazep GC/MS Ur Nordiazepam Ur Nordiazepam GC/MS Flurazepam Flurazepam Confirm Lorazepam Urine Lorazepam Ur Oxazepam U Oxazepam Confm GC/MS Urine Temazepam Ur Temazepam (GC/MS) Urine Triazolam Ur Triazolam (GC/MS) Meperidine (GC/MS) Ur Meperidine Cocaine Screen Negative Cocaine & Metabolite Urine Cocaine Benzoylecgonine Cannabinoids Urine Cannabinoids U Marijuana (THC) Screen Negative Urine Marijuana (THC) Urine Ethyl Alcohol Blood Type Antibody Screen Crossmatch 07/11/17 07/11/17 11:00 12:16 WBC RBC Hgb Hct MCV MCH MCHC RDW Plt Count MPV Neutrophils % Lymphocytes % Monocytes % Eosinophils % Basophils % PT with INR INR Fibrinogen D-Dimer Sodium Potassium Chloride Carbon Dioxide Anion Gap BUN Creatinine Creat Clearance w eGFR Random Glucose Specific [place] Lactic Acid 1.1 Calcium Total Bilirubin AST ALT Alkaline Phosphatase LD Total Creatine Kinase Troponin I Total Protein Albumin Beta HCG, Quant Serum , Qual Negative Urine Color Urine Appearance Urine pH Ur Specific [place] Urine Protein Urine Glucose (UA) Urine Ketones Urine Blood Urine Nitrite Urine Bilirubin Urine Urobilinogen Ur Leukocyte Esterase Stool Occult Blood Urine Butalbital Ur Butalbital Confirm Salicylates Opiates Screen Urine Opiates Screen Meperidine Urine Normeperidine U Normeperidine GC/MS Urine Codeine U Codeine Confrm GC/MS Urine Morphine Morphine Confirm GC/MS Urine Hydrocodone Ur Hydrocodone (GC/MS) Urine Oxycodone Ur Oxycodone GC/MS Oxymorphone Confirm Urine Oxymorphone U Oxycodone/Oxymorphon Methadone Screen Ur Methadone Ur Methadone Confirm Ur Hydromorphone Ur Hydromorphone (GC/MS) Urine Propoxyphene U Propoxyphene/M GC/MS Acetaminophen Barbiturate Screen Ur Barbiturates Screen Urine Barbiturates Phencyclidine Screen Ur Phencyclidine (PCP) Ur PCP Confirm (GC/MS) Amphetamines Amphetamines Grp GC/MS Ur Amphetamines Screen Urine Amphetamine Ur Amphetamines, Quant Methamphetamine Methamphetamine GC/MS MDMA (Ecstasy) Screen Urine Amobarbital Ur Amobarbital GC/MS Urine Pentobarbital U Pentobarbital GC/MS Urine Phenobarbital U Phenobarbital GC/MS Urine Secobarbital U Secobarbital GC/MS Urine Alprazolam U [place]-Alprazolam GC/MS Benzodiazepines Screen U Benzodiazepines Scrn Urine Clonazepam U 7-Amino Clonazep GC/MS Ur Nordiazepam Ur Nordiazepam GC/MS Flurazepam Flurazepam Confirm Lorazepam Urine Lorazepam Ur Oxazepam U Oxazepam Confm GC/MS Urine Temazepam Ur Temazepam (GC/MS) Urine Triazolam Ur Triazolam (GC/MS) Meperidine (GC/MS) Ur Meperidine Cocaine Screen Cocaine & Metabolite Urine Cocaine Benzoylecgonine Cannabinoids Urine Cannabinoids U Marijuana (THC) Screen Urine Marijuana (THC) Urine Ethyl Alcohol Blood Type Antibody Screen Crossmatch ASSESSMENT/PLAN: 27 year old F with multiple medical comorbidities presented with syncope and rectal bleeding found to have 1cm deep marginal ulcer on upper endoscopy clipped #Acute blood loss anemia, 2/2 to GI Bleed with 1 cm deep marignal ulcer -IV PPI drip -Carafate -If pt continues to bleed, will start iv octreotide and call GI -NS @ 125 cc/hr -IV tylenol for pain control #Anxiety -Holding klonopin #Polysubstance abuse -Suboxone started, ICU team discussed with Dr. Amador - mobile: [phone]. Will call pcp back to discuss dosing. -Dr. Smith consult #FEN/GI -IVF ns @ 125 cc/hr -wnl -npo #PPx -SCDs Dispo: ICU level of care x 24 hrs, will reassess Visit type - Emergency Visit Emergency Visit: Yes ED Registration Date: 07/11/17 Care time: The patient presented to the Emergency Department on the above date and was hospitalized for further evaluation of their emergent condition. - New Patient This patient is new to me today: Yes Date on this admission: 07/11/17 - Critical Care Critical Care patient: Yes Total Critical Care Time (in minutes): 54 Critical Care Statement: The care of this patient involved high complexity decision making to prevent further life threatening deterioration of the patient 's condition and/or to evaluate & treat vital organ system(s) failure or risk of failure. Hospitalist Screening - Colonoscopy Questionnaire Colonoscopy Questionnaire: Colonoscopy Questionnaire - Patient: 50 - 75 years old and never had a screening colonoscopy: Unknown History of colon or rectal polyps, or CA: Unknown History of IBD, Crohn's disease or UC: Unknown History of abdominal radiation therapy as a child: Unknown - Relative: 1 with colon or rectal CA, or polyps at age 60 or younger: Unknown Colon or rectal CA diagnosed at age 45 or younger: Unknown Multiple relatives with colon or rectal CA: Unknown - Outcome: Screening Result: Negative Screen
[2017-07-11] MEDS ORDERED: NICOTINE 21 MG/24 HOURS TOPICAL PATCH TD SCH (14:45)
--- NOTE | 2017-07-11 15:07 | PN ---
Teaching Attending Note Name of Resident: Daniel Fam ATTENDING PHYSICIAN STATEMENT I saw and evaluated the patient. I reviewed the resident's note and discussed the case with the resident. I agree with the resident's findings and plan as documented. SUBJECTIVE: This is a 27 year old woman with a history of obesity, gastric bypass, anemia, opioid abuse, depression, anxiety who comes to the ED today after having a bloody bowel movement followed by a syncopal episode. Patient has been uncooperative. As per family, she takes a significant amount of ibuprofen. Her last EGD was about 5 years ago and was unremarkable. OBJECTIVE: Vital Signs Period Temp Pulse Resp BP Sys/Park Pulse Ox Last 24 Hr 98.1 F-98.7 F 64-85 12-20 97-120/55-100 99-100 HEART: S1S2, RRR LUNGS: Clear ABDOMEN: Obese, soft, non-tender, non-distended, normal BS EXTREMITIES: No edema Laboratory Tests 07/11/17 07/11/17 07/11/17 09:30 09:30 09:30 WBC 7.8 RBC 2.91 L Hgb 8.1 L D Hct 24.6 L D MCV 84.6 MCH 27.8 MCHC 32.9 RDW 12.1 Plt Count 262 D MPV 7.9 Neutrophils % 62.3 Lymphocytes % 30.5 D Monocytes % 5.2 Eosinophils % 1.6 Basophils % 0.4 PT with INR 13.00 H INR 1.15 H Fibrinogen D-Dimer Sodium 146 H Potassium 4.4 Chloride 111 H Carbon Dioxide 28 Anion Gap 7 L BUN 15 Creatinine 0.5 L Creat Clearance w eGFR > 60 Random Glucose 127 H Specific [place] Lactic Acid Calcium 7.2 L Total Bilirubin < 0.1 L D AST 20 ALT 24 Alkaline Phosphatase 40 L LD Total Creatine Kinase 60 Troponin I < 0.02 Total Protein 4.5 L Albumin 2.4 L Beta HCG, Quant Serum , Qual Urine Color Urine Appearance Urine pH Ur Specific [place] Urine Protein Urine Glucose (UA) Urine Ketones Urine Blood Urine Nitrite Urine Bilirubin Urine Urobilinogen Ur Leukocyte Esterase Stool Occult Blood Urine Butalbital Ur Butalbital Confirm Salicylates < 1.700 Opiates Screen Urine Opiates Screen Meperidine Urine Normeperidine U Normeperidine GC/MS Urine Codeine U Codeine Confrm GC/MS Urine Morphine Morphine Confirm GC/MS Urine Hydrocodone Ur Hydrocodone (GC/MS) Urine Oxycodone Ur Oxycodone GC/MS Oxymorphone Confirm Urine Oxymorphone U Oxycodone/Oxymorphon Methadone Screen Ur Methadone Ur Methadone Confirm Ur Hydromorphone Ur Hydromorphone (GC/MS) Urine Propoxyphene U Propoxyphene/M GC/MS Acetaminophen 4.775 Barbiturate Screen Ur Barbiturates Screen Urine Barbiturates Phencyclidine Screen Ur Phencyclidine (PCP) Ur PCP Confirm (GC/MS) Amphetamines Amphetamines Grp GC/MS Ur Amphetamines Screen Urine Amphetamine Ur Amphetamines, Quant Methamphetamine Methamphetamine GC/MS MDMA (Ecstasy) Screen Urine Amobarbital Ur Amobarbital GC/MS Urine Pentobarbital U Pentobarbital GC/MS Urine Phenobarbital U Phenobarbital GC/MS Urine Secobarbital U Secobarbital GC/MS Urine Alprazolam U OH-Alprazolam GC/MS Benzodiazepines Screen U Benzodiazepines Scrn Urine Clonazepam U 7-Amino Clonazep GC/MS Ur Nordiazepam Ur Nordiazepam GC/MS Flurazepam Flurazepam Confirm Lorazepam Urine Lorazepam Ur Oxazepam U Oxazepam Confm GC/MS Urine Temazepam Ur Temazepam (GC/MS) Urine Triazolam Ur Triazolam (GC/MS) Meperidine (GC/MS) Ur Meperidine Cocaine Screen Cocaine & Metabolite Urine Cocaine Benzoylecgonine Cannabinoids Urine Cannabinoids U Marijuana (THC) Screen Urine Marijuana (THC) Urine Ethyl Alcohol Blood Type Antibody Screen Crossmatch 07/11/17 07/11/17 07/11/17 09:30 09:30 09:30 WBC RBC Hgb Hct MCV MCH MCHC RDW Plt Count MPV Neutrophils % Lymphocytes % Monocytes % Eosinophils % Basophils % PT with INR INR Fibrinogen D-Dimer Sodium Potassium Chloride Carbon Dioxide Anion Gap BUN Creatinine Creat Clearance w eGFR Random Glucose Specific [place] Lactic Acid 4.2 H* Calcium Total Bilirubin AST ALT Alkaline Phosphatase LD Total Creatine Kinase Troponin I Total Protein Albumin Beta HCG, Quant Serum , Qual Urine Color Urine Appearance Urine pH Ur Specific [place] Urine Protein Urine Glucose (UA) Urine Ketones Urine Blood Urine Nitrite Urine Bilirubin Urine Urobilinogen Ur Leukocyte Esterase Stool Occult Blood Urine Butalbital Ur Butalbital Confirm Salicylates Opiates Screen Urine Opiates Screen Meperidine Urine Normeperidine U Normeperidine GC/MS Urine Codeine U Codeine Confrm GC/MS Urine Morphine Morphine Confirm GC/MS Urine Hydrocodone Ur Hydrocodone (GC/MS) Urine Oxycodone Ur Oxycodone GC/MS Oxymorphone Confirm Urine Oxymorphone U Oxycodone/Oxymorphon Methadone Screen Ur Methadone Ur Methadone Confirm Ur Hydromorphone Ur Hydromorphone (GC/MS) Urine Propoxyphene U Propoxyphene/M GC/MS Acetaminophen Barbiturate Screen Ur Barbiturates Screen Urine Barbiturates Phencyclidine Screen Ur Phencyclidine (PCP) Ur PCP Confirm (GC/MS) Amphetamines Amphetamines Grp GC/MS Ur Amphetamines Screen Urine Amphetamine Ur Amphetamines, Quant Methamphetamine Methamphetamine GC/MS MDMA (Ecstasy) Screen Urine Amobarbital Ur Amobarbital GC/MS Urine Pentobarbital U Pentobarbital GC/MS Urine Phenobarbital U Phenobarbital GC/MS Urine Secobarbital U Secobarbital GC/MS Urine Alprazolam U OH-Alprazolam GC/MS Benzodiazepines Screen U Benzodiazepines Scrn Urine Clonazepam U 7-Amino Clonazep GC/MS Ur Nordiazepam Ur Nordiazepam GC/MS Flurazepam Flurazepam Confirm Lorazepam Urine Lorazepam Ur Oxazepam U Oxazepam Confm GC/MS Urine Temazepam Ur Temazepam (GC/MS) Urine Triazolam Ur Triazolam (GC/MS) Meperidine (GC/MS) Ur Meperidine Cocaine Screen Cocaine & Metabolite Urine Cocaine Benzoylecgonine Cannabinoids Urine Cannabinoids U Marijuana (THC) Screen Urine Marijuana (THC) Urine Ethyl Alcohol Blood Type A POSITIVE Cancelled Antibody Screen Negative Cancelled Crossmatch See Detail 07/11/17 07/11/17 07/11/17 09:32 09:32 09:40 WBC RBC Hgb Hct MCV MCH MCHC RDW Plt Count MPV Neutrophils % Lymphocytes % Monocytes % Eosinophils % Basophils % PT with INR INR Fibrinogen 166.0 L D-Dimer 260 Sodium Potassium Chloride Carbon Dioxide Anion Gap BUN Creatinine Cancelled Creat Clearance w eGFR Random Glucose Specific [place] Cancelled Lactic Acid Calcium Total Bilirubin AST ALT Alkaline Phosphatase LD Total 123 Creatine Kinase Troponin I Total Protein Albumin Beta HCG, Quant < 1.0 Serum , Qual Urine Color Urine Appearance Urine pH Ur Specific [place] Urine Protein Urine Glucose (UA) Urine Ketones Urine Blood Urine Nitrite Urine Bilirubin Urine Urobilinogen Ur Leukocyte Esterase Stool Occult Blood Urine Butalbital Cancelled Ur Butalbital Confirm Cancelled Salicylates Opiates Screen Urine Opiates Screen Cancelled Meperidine Cancelled Urine Normeperidine Cancelled U Normeperidine GC/MS Cancelled Urine Codeine Cancelled U Codeine Confrm GC/MS Cancelled Urine Morphine Cancelled Morphine Confirm GC/MS Cancelled Urine Hydrocodone Cancelled Ur Hydrocodone (GC/MS) Cancelled Urine Oxycodone Cancelled Ur Oxycodone GC/MS Cancelled Oxymorphone Confirm Cancelled Urine Oxymorphone Cancelled U Oxycodone/Oxymorphon Cancelled Methadone Screen Ur Methadone Cancelled Ur Methadone Confirm Cancelled Ur Hydromorphone Cancelled Ur Hydromorphone (GC/MS) Cancelled Urine Propoxyphene Cancelled U Propoxyphene/M GC/MS Cancelled Acetaminophen Barbiturate Screen Ur Barbiturates Screen Cancelled Urine Barbiturates Cancelled Phencyclidine Screen Ur Phencyclidine (PCP) Cancelled Ur PCP Confirm (GC/MS) Cancelled Amphetamines Cancelled Amphetamines Grp GC/MS Cancelled Ur Amphetamines Screen Urine Amphetamine Cancelled Ur Amphetamines, Quant Cancelled Methamphetamine Cancelled Methamphetamine GC/MS Cancelled MDMA (Ecstasy) Screen Urine Amobarbital Cancelled Ur Amobarbital GC/MS Cancelled Urine Pentobarbital Cancelled U Pentobarbital GC/MS Cancelled Urine Phenobarbital Cancelled U Phenobarbital GC/MS Cancelled Urine Secobarbital Cancelled U Secobarbital GC/MS Cancelled Urine Alprazolam Cancelled U OH-Alprazolam GC/MS Cancelled Benzodiazepines Screen U Benzodiazepines Scrn Cancelled Urine Clonazepam Cancelled U 7-Amino Clonazep GC/MS Cancelled Ur Nordiazepam Cancelled Ur Nordiazepam GC/MS Cancelled Flurazepam Cancelled Flurazepam Confirm Cancelled Lorazepam Cancelled Urine Lorazepam Cancelled Ur Oxazepam Cancelled U Oxazepam Confm GC/MS Cancelled Urine Temazepam Cancelled Ur Temazepam (GC/MS) Cancelled Urine Triazolam Cancelled Ur Triazolam (GC/MS) Cancelled Meperidine (GC/MS) Cancelled Ur Meperidine Cancelled Cocaine Screen Cocaine & Metabolite Cancelled Urine Cocaine Cancelled Benzoylecgonine Cancelled Cannabinoids Cancelled Urine Cannabinoids Cancelled U Marijuana (THC) Screen Urine Marijuana (THC) Cancelled Urine Ethyl Alcohol Cancelled Blood Type Antibody Screen Crossmatch 07/11/17 07/11/17 07/11/17 09:40 09:40 10:38 WBC RBC Hgb Hct MCV MCH MCHC RDW Plt Count MPV Neutrophils % Lymphocytes % Monocytes % Eosinophils % Basophils % PT with INR INR Fibrinogen D-Dimer Sodium Potassium Chloride Carbon Dioxide Anion Gap BUN Creatinine Creat Clearance w eGFR Random Glucose Specific [place] Lactic Acid Calcium Total Bilirubin AST ALT Alkaline Phosphatase LD Total Creatine Kinase Troponin I Total Protein Albumin Beta HCG, Quant Serum , Qual Urine Color Yellow Urine Appearance Clear Urine pH 6.0 Ur Specific [place] 1.027 Urine Protein Negative Urine Glucose (UA) Negative Urine Ketones Negative Urine Blood Negative Urine Nitrite Negative Urine Bilirubin Negative Urine Urobilinogen Negative Ur Leukocyte Esterase Negative Stool Occult Blood Positive Urine Butalbital Ur Butalbital Confirm Salicylates Opiates Screen Negative Urine Opiates Screen Meperidine Urine Normeperidine U Normeperidine GC/MS Urine Codeine U Codeine Confrm GC/MS Urine Morphine Morphine Confirm GC/MS Urine Hydrocodone Ur Hydrocodone (GC/MS) Urine Oxycodone Ur Oxycodone GC/MS Oxymorphone Confirm Urine Oxymorphone U Oxycodone/Oxymorphon Methadone Screen Negative Ur Methadone Ur Methadone Confirm Ur Hydromorphone Ur Hydromorphone (GC/MS) Urine Propoxyphene U Propoxyphene/M GC/MS Acetaminophen Barbiturate Screen Negative Ur Barbiturates Screen Urine Barbiturates Phencyclidine Screen Negative Ur Phencyclidine (PCP) Ur PCP Confirm (GC/MS) Amphetamines Amphetamines Grp GC/MS Ur Amphetamines Screen Negative Urine Amphetamine Ur Amphetamines, Quant Methamphetamine Methamphetamine GC/MS MDMA (Ecstasy) Screen Negative Urine Amobarbital Ur Amobarbital GC/MS Urine Pentobarbital U Pentobarbital GC/MS Urine Phenobarbital U Phenobarbital GC/MS Urine Secobarbital U Secobarbital GC/MS Urine Alprazolam U OH-Alprazolam GC/MS Benzodiazepines Screen Negative U Benzodiazepines Scrn Urine Clonazepam U 7-Amino Clonazep GC/MS Ur Nordiazepam Ur Nordiazepam GC/MS Flurazepam Flurazepam Confirm Lorazepam Urine Lorazepam Ur Oxazepam U Oxazepam Confm GC/MS Urine Temazepam Ur Temazepam (GC/MS) Urine Triazolam Ur Triazolam (GC/MS) Meperidine (GC/MS) Ur Meperidine Cocaine Screen Negative Cocaine & Metabolite Urine Cocaine Benzoylecgonine Cannabinoids Urine Cannabinoids U Marijuana (THC) Screen Negative Urine Marijuana (THC) Urine Ethyl Alcohol Blood Type Antibody Screen Crossmatch 07/11/17 07/11/17 11:00 12:16 WBC RBC Hgb Hct MCV MCH MCHC RDW Plt Count MPV Neutrophils % Lymphocytes % Monocytes % Eosinophils % Basophils % PT with INR INR Fibrinogen D-Dimer Sodium Potassium Chloride Carbon Dioxide Anion Gap BUN Creatinine Creat Clearance w eGFR Random Glucose Specific [place] Lactic Acid 1.1 Calcium Total Bilirubin AST ALT Alkaline Phosphatase LD Total Creatine Kinase Troponin I Total Protein Albumin Beta HCG, Quant Serum , Qual Negative Urine Color Urine Appearance Urine pH Ur Specific [place] Urine Protein Urine Glucose (UA) Urine Ketones Urine Blood Urine Nitrite Urine Bilirubin Urine Urobilinogen Ur Leukocyte Esterase Stool Occult Blood Urine Butalbital Ur Butalbital Confirm Salicylates Opiates Screen Urine Opiates Screen Meperidine Urine Normeperidine U Normeperidine GC/MS Urine Codeine U Codeine Confrm GC/MS Urine Morphine Morphine Confirm GC/MS Urine Hydrocodone Ur Hydrocodone (GC/MS) Urine Oxycodone Ur Oxycodone GC/MS Oxymorphone Confirm Urine Oxymorphone U Oxycodone/Oxymorphon Methadone Screen Ur Methadone Ur Methadone Confirm Ur Hydromorphone Ur Hydromorphone (GC/MS) Urine Propoxyphene U Propoxyphene/M GC/MS Acetaminophen Barbiturate Screen Ur Barbiturates Screen Urine Barbiturates Phencyclidine Screen Ur Phencyclidine (PCP) Ur PCP Confirm (GC/MS) Amphetamines Amphetamines Grp GC/MS Ur Amphetamines Screen Urine Amphetamine Ur Amphetamines, Quant Methamphetamine Methamphetamine GC/MS MDMA (Ecstasy) Screen Urine Amobarbital Ur Amobarbital GC/MS Urine Pentobarbital U Pentobarbital GC/MS Urine Phenobarbital U Phenobarbital GC/MS Urine Secobarbital U Secobarbital GC/MS Urine Alprazolam U OH-Alprazolam GC/MS Benzodiazepines Screen U Benzodiazepines Scrn Urine Clonazepam U 7-Amino Clonazep GC/MS Ur Nordiazepam Ur Nordiazepam GC/MS Flurazepam Flurazepam Confirm Lorazepam Urine Lorazepam Ur Oxazepam U Oxazepam Confm GC/MS Urine Temazepam Ur Temazepam (GC/MS) Urine Triazolam Ur Triazolam (GC/MS) Meperidine (GC/MS) Ur Meperidine Cocaine Screen Cocaine & Metabolite Urine Cocaine Benzoylecgonine Cannabinoids Urine Cannabinoids U Marijuana (THC) Screen Urine Marijuana (THC) Urine Ethyl Alcohol Blood Type Antibody Screen Crossmatch Home Medications Medication Instructions Recorded Ascorbate Calcium [Vitamin C] 500 mg PO BID 07/11/17 Buprenorphine HCl/Naloxone HCl 1 each SL BID 07/11/17 [Suboxone 12 mg-3 mg Sl Film] Calcium Carbonate [Calcium] 500 mg PO BID 07/11/17 Cetirizine HCl [All Day Allergy] 10 mg PO DAILY 07/11/17 Cholecalciferol (Vitamin D3) 1,000 unit PO DAILY 07/11/17 [Vitamin D3] Clonazepam [Klonopin] 1 mg PO TID 07/11/17 Cyanocobalamin [Vitamin B12 -] 100 mcg PO DAILY 07/11/17 Ferrous Sulfate 325 mg PO TID 07/11/17 Nicotine [Nicotine Patch 21 mg/24 1 each TD PRN 07/11/17 hr] Pnv No.95/Ferrous Fum/Folic AC 1 each PO DAILY 07/11/17 [ Vitamin Tablet] Ranitidine [Zantac -] 150 mg PO BID 07/11/17 Sennosides [Senna] 8.6 mg PO TID 07/11/17 Thiamine HCl 0 mg PO DAILY 07/11/17 Trazodone HCl 50 mg PO HS 07/11/17 ASSESSMENT AND PLAN: This is a 27 year old woman with a history of obesity, gastric bypass, opioid abuse, anxiety who presented to the ED after having a bloody bowel movement followed by a syncopal episode. 1. Acute GI blood loss anemia secondary to UGI bleed - Admit to ICU - EGD done and revealed 1 cm deep marginal ulcer with clot which was injected with epinephrine then visible vessel was clipped - Protonix IV drip - Carafate - Transfuse and monitor hemoglobin - No aspirin, NSAIDs 2. Syncope, likely secondary to hypotension 3. Lactic acidemia - Likely secondary to hypoperfusion - Resolved 4. Opioid dependence - On Suboxone 5. Depression, anxiety - Continue Trazodone, Klonopin 6. Chronic anemia 7. Obesity, history of gastric bypass
--- NOTE | 2017-07-11 15:57 | CONSULT ---
"Consult Detox [facility] Reason for Current Admission/Consult: substance use Referred by:: Yaneth adrian - History History of Present Illness: 27 yo F w h/o opioid use disorder, severe on Mat with suboxone 24mg daily, clonazepam 1mg tid for anxiety and vyvanse 60mg daily for ADHD, nicotine dependence also pmhx of gastric bypass, cholecystectomy (2004), anemia, chronic advil use admitted after a syncopal episode and rectal bleeidng. History obtained from mother as patient was non compliant with history and physical examination. At upper endoscopy, and found to have a 1 cm deep marginal ulcer, received 2 units of PRBC.Has not had clonazepam since admission now c/o withrawal sx - anxiety , agitation, sweats, insomnia, nausea. h/o benzodiazepien withdrawal seizures in past. Utox ordered neg for illicit substance use Search Terms: Romulo Zuluaga, 1990 Search Date: 07/11/2017 04:00:50 PM The Drug Utilization Report below displays all of the controlled substance prescriptions, if any, that your patient has filled in the last twelve months. The information displayed on this report is compiled from pharmacy submissions to the Department, and accurately reflects the information as submitted by the pharmacies. This report was requested by: Hussein Saenz | Reference #: [id number] Others' Prescriptions Patient Name: Romulo Zuluaga Date: 1990 Address: [address] [place] [address] Sex: Female Rx Written Rx Dispensed Drug Quantity Days Supply Prescriber Name 07/01/2017 07/01/2017 clonazepam 1 mg tablet 90 30 Ginger Gonzalez MD 07/01/2017 07/01/2017 vyvanse 60 mg capsule 30 30 Ginger Gonzalez MD 05/06/2017 05/07/2017 clonazepam 1 mg tablet 90 30 Ginger Gonzalez MD 05/06/2017 05/06/2017 vyvanse 60 mg capsule 30 30 Ginger Gonzalez MD 04/29/2017 04/30/2017 vyvanse 60 mg capsule 7 7 Ginger Gonzalez MD 04/29/2017 04/30/2017 clonazepam 1 mg tablet 21 7 GonzalezGinger simmons MD 03/26/2017 03/31/2017 vyvanse 60 mg capsule 30 30 GonzalezGinger simmons MD 03/26/2017 03/31/2017 clonazepam 1 mg tablet 90 30 GonzalezGinger simmons MD 02/26/2017 03/01/2017 vyvanse 60 mg capsule 30 30 GonzalezGinger simmons MD 02/26/2017 03/01/2017 clonazepam 1 mg tablet 90 30 GonzalezGinger simmons MD 02/01/2017 02/01/2017 vyvanse 60 mg capsule 30 30 GonzalezGinger simmons MD 02/01/2017 02/01/2017 clonazepam 1 mg tablet 90 30 GonzalezGinger simmons MD 01/04/2017 01/04/2017 vyvanse 60 mg capsule 30 30 GonzalezGinger simmons MD 01/04/2017 01/04/2017 clonazepam 1 mg tablet 90 30 Ginger Gonzalez MD 12/07/2016 12/07/2016 vyvanse 60 mg capsule 30 30 GonzalezGinger simmons MD 12/07/2016 12/07/2016 clonazepam 1 mg tablet 90 30 GonzalezGinger simmons MD Patient Name: Claudia Zuluaga Date: 1990 Address: [address] [place] [address] Sex: Female Rx Written Rx Dispensed Drug Quantity Days Supply Prescriber Name 06/25/2017 06/25/2017 suboxone 12 mg-3 mg sl film 60 30 Mala Samuels MD 04/30/2017 05/27/2017 suboxone 12 mg-3 mg sl film 60 30 Coloka-KumVikas de la cruz DO 04/30/2017 04/30/2017 suboxone 12 mg-3 mg sl film 60 30 Coloka-Kump, Rodika DO 03/08/2017 04/03/2017 suboxone 12 mg-3 mg sl film 60 30 Orquidea Casey MD 03/08/2017 03/08/2017 suboxone 12 mg-3 mg sl film 60 30 Orquidea Casey MD 01/11/2017 02/11/2017 suboxone 12 mg-3 mg sl film 60 30 AszaMala solorzano MD 01/11/2017 01/12/2017 suboxone 12 mg-3 mg sl film 60 30 AszaMala solorzano MD 11/16/2016 12/14/2016 suboxone 12 mg-3 mg sl film 60 30 Coloka-Kump, [facility] DO 11/16/2016 11/16/2016 suboxone 12 mg-3 mg sl film 60 30 Coloka-Kump, [facility] DO 09/20/2016 10/19/2016 suboxone 12 mg-3 mg sl film 60 30 RingstadOrquidea MD 10/10/2016 10/12/2016 clonazepam 1 mg tablet 90 30 Ginger Gonzalez MD 09/20/2016 09/21/2016 suboxone 12 mg-3 mg sl film 60 30 [place], Orquidea William MD 09/14/2016 09/14/2016 clonazepam 1 mg tablet 90 30 Mala Bains C, MD 08/28/2016 09/10/2016 suboxone 12 mg-3 mg sl film 28 14 Coloka-Kump, [facility] DO 08/28/2016 09/01/2016 clonazepam 1 mg tablet 21 7 Coloka-Kump, [facility] DO 08/28/2016 08/28/2016 suboxone 12 mg-3 mg sl film 28 14 Coloka-Kump, [facility] DO 07/31/2016 08/14/2016 suboxone 12 mg-3 mg sl film 28 14 Mala Samuels MD 08/06/2016 08/06/2016 clonazepam 1 mg tablet 42 14 Mala Samuels MD 07/31/2016 07/31/2016 suboxone 12 mg-3 mg sl film 28 14 Mala Samuels MD 07/03/2016 07/14/2016 suboxone 12 mg-3 mg sl film 28 14 Mala Samuels MD Patient Name: Romulo Zuluaga Date: 1990 Address: [address] [place] [address] Sex: Female Rx Written Rx Dispensed Drug Quantity Days Supply Prescriber Name 06/03/2017 06/05/2017 clonazepam 1 mg tablet 90 30 Ginger Gonzalez MD 06/03/2017 06/03/2017 vyvanse 50 mg capsule 30 30 Ginger Gonzalez MD 11/09/2016 11/09/2016 vyvanse 60 mg capsule 30 30 Ginger Gonzalez MD 11/09/2016 11/09/2016 clonazepam 1 mg tablet 90 30 Ginger Gonzalez MD 10/12/2016 10/15/2016 vyvanse 60 mg capsule 25 30 Ginger Gonzalez MD 10/12/2016 10/12/2016 vyvanse 60 mg capsule 5 5 Ginger Gonzalez MD 08/24/2016 08/25/2016 clonazepam 1 mg tablet 21 7 Mala Samuels MD - History Source History Provided By: Patient, Family Member, Medical Record, Caregiver Limitations to Obtaining History: No Limitations - Alcohol/Substance Use Hx Alcohol Use: No Hx Substance Use: Yes (opioid dependence, prescription pills) Hx Substance Use Treatment: No (mat suboxone) - Past Medical History [employer]LECT[employer]: Yes: Migraine Gastrointestinal: Yes: Gastritis, Peptic Ulcer Disease ...LMP: 10/20/14 ...: No Psych: Yes: Addictions, Anxiety, Depression, Other (PTSD, mood disorder NOS,) Musculoskeletal: Yes: Osteoarthritis - Past Surgical History Past Surgical History: Yes: Bariatric Surgery - Significant Medical Findings: 27 yo f w OUD on MAT w suboxone, clonazepam 1mg tid for chronic anxiety not given since admission and now with benzodiazepien withdrawal sx. transfused 2 units prbc after gi bleed from duodenal ulcer. CIWA Score - CIWA Score Nausea/Vomitin Muscle Tremors: 2 Anxiety: 4-Mod. Anxious/Guarded Agitation: 2 Paroxysmal Sweats: 2 Orientation: 0-Oriented Tacttile Disturbances: 0-None Auditory Disturbances: 0-None Visual Disturbances: 0-None Headache: 0-None Present CIWA-Ar Total Score: 12 Assessment Plan - Diagnosis (1) Sedative, hypnotic or anxiolytic dependence with withdrawal, uncomplicated Status: Acute (2) Encounter for monitoring Suboxone maintenance therapy Status: Acute (3) GI bleeding Status: Acute (4) History of gastric bypass Status: Acute (5) Opioid dependence on agonist therapy Status: Acute (6) delivery delivered Status: Acute (7) Insomnia Status: Acute (8) Hypokalemia Status: Acute - Plan Plan: chart, imagin, and labs reviewed, patient examined and history taken. CAre discussed with nmedical team. REcommned: 1. cont suboxone maintenance 8mg tid as we do not carry 12mg strips which can be given in one dose, observe ingestion of medication to reduce risk of diversion. 2. benzodiazepine dependence in [place] as she has not had her clonazepam for several days, usually takes 1mg tid, has history of seizures from withdrawal in past. give clonazepam 2mg x1 dose now , restart clonazepam 1mg tid as prescribed by her pcp. 3. insomnia - trazadone 4. fluids, vitamins 5. return to loss mitigation specialist currently treating patient on discharge. 6. hypokalemia- supplement k 7. consider restarting vyvanse for adhd as prescribed as outpatient Hussein Saenz MD [phone] - Medication Detox Regimen/Protocol: Not Applicable"
--- NOTE | 2017-07-11 16:21 | EKG ---
Test Reason : Blood Pressure : / mmHG Vent. Rate : 064 BPM Atrial Rate : 064 BPM P-R Int : 148 ms QRS Dur : 094 ms QT Int : 420 ms P-R-T Axes : 052 025 025 degrees QTc Int : 433 ms NORMAL SINUS RHYTHM NORMAL ECG WHEN COMPARED WITH ECG OF 11-JUL-2017 09:31, VENT. RATE HAS DECREASED BY 33 BPM NONSPECIFIC T WAVE ABNORMALITY NOW EVIDENT IN INFERIOR LEADS Confirmed by NIKUNJ SCHMITZ, SCOT (2013) on 07/11/2017 4:21:25 PM Referred By: MODESTO BRIDGES DR Confirmed By:SCOT CALVIN MD
[2017-07-11] MEDS: PANTOPRAZOLE SODIUM 160 MG in DEXTROSE 5%-WATER - 290 ML IVPB SCH (16:56)
[2017-07-11] MEDS: ACETAMINOPHEN 1000 MG/100 ML VIAL (NON FORMULARY) IVPB PRN (16:56)
[2017-07-11] MEDS: SUCRALFATE 1 GM/10 ML UNIT DOSE CUPS PO SCH ×2 (16:58→21:08)
[2017-07-11] MEDS ORDERED: PT OWN MED DRAWER 7, Y5N ONE (17:58)
--- NOTE | 2017-07-11 18:00 | CON.PSY ---
Psychiatry Consult Chief Complaint: patient seen for Psych consult, history of Borderline Persolnality Disorder, Sub abuse, anxiety. patient admitted with severe Ulcer and is on Blood Transfusion. has been on Suboxone, Klonapin and Trazadone. Symptoms: reports: Anxiety - Previous Psychiatric Treatment Outpatient: Less than 6 mos ago Inpatient: One prior admission - Previous Substance Abuse Treatment Outpatient: Less than 6 mos ago - Reason for Previous Treatment Reason for Previous Treatment: Major Depression, Anxiety or Panic Disorder, Heroin or Other Narcotics - Current Medications Current Medications: Active Medications Acetaminophen (Ofirmev Injection -) 1,000 mg IVPB Q6H PRN PRN Reason: PAIN LEVEL 6-10 Last Admin: 07/11/17 16:56 Dose: 1,000 mg Buprenorphine/Naloxone (Suboxone 12 Mg-3 Mg Sl Film) 1 each SL BID VIJAYA Chlorhexidine Gluconate (Hibiclens For Decolonization -) 1 applic TP HS VIJAYA Pantoprazole Sodium 160 mg/ (Dextrose) 290 mls @ 14.5 mls/hr IVPB Q10H VIJAYA PRN Reason: 8 MG/HR Last Admin: 07/11/17 16:56 Dose: 14.5 mls/hr Sodium Chloride (Normal Saline -) 1,000 mls @ 125 mls/hr IV ASDIR VIJAYA Mupirocin (Bactroban Ointment (For Decolonization) -) 1 applic NS BID [facility] Stop: 07/16/17 21:59 Sucralfate (Carafate Oral Suspension -) 1 gm PO ACHS VIJAYA Last Admin: 07/11/17 16:58 Dose: 1 gm - Allergies Allergies: Allergies Allergy/AdvReac Type Severity Reaction Status Date / Time morphine Allergy Severe Swelling Verified 07/11/17 09:12 shellfish derived Allergy Severe Swelling Verified 07/11/17 09:12 enoxaparin [From Lovenox] Allergy Verified 07/11/17 09:12 cats Allergy Uncoded 07/11/17 09:12 - Current Living Status Usual Living Arrangement: Alone - Current Mental Status Evaluation Appearance: Disheveled Attitude: Cooperative - Affect Affect: Constrictive - Mood Mood: Euthymic - Speech/Language Expressive: Coherent - Psychomotor Activity Psychomotor Activity: Slowed - Thought Process Thought Process: Intact - Thought Content Delusions: Absent - Self Perception Self Perception: No Impairment - Cognition Attention: Alert Orientation: Time Memory, Immediate Recall: Intact Memory, Short Term: 3/3 Memory, Remote with Promptin/3 - Concentration Serial Sevens Intact: Yes Simple Calculations Intact: Yes - Abstraction Proverb Interpretation: Intact Judgement: Intact - Insight Insight: Intact - Impulse Control Impulse Control: Good Control - Suicidal Ideation Suicidal Ideation: No - Homicidal Ideation Homicidal Ideation: No Assessment/Plan 1) Patient should be ok with Suboxone SL tabs. 2) you can givr Ativan 2mg IM Q 12 hrs foralmtia Laureano withdrawmoe. 3) She will return to her Psych at the clinic.
--- NOTE | 2017-07-11 20:17 | CONSULT ---
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 She was hypotensive in field, improved with IVF. In ED pt was unrevealing except for pallor, guiac + melanotic stool, and hgb of 8 down from 9.4 on last admission, 12 previous to that. She relates using some NSAIDs. There was no striking of head with syncope, no chest pain, no shortness of breath, no sick contacts for prodrome. She was seen by GI and went to Endo suite where a 1cm ulcer with visible vessel was identified, injected, clipped and cauterized. She has received a total of 3units PRBC, repeat CBC is pending. Pt is awake alert, hemodynamically stable and without complaint. Plan for PPI gtt, overnight observation, clears in AM and serial CBC. Past Medical History [employer] Migraine Gastrointestinal Gastritis,Peptic Ulcer Disease Heme/Onc Anemia Psych Addictions (PTSD, mood disorder NOS,),Anxiety, Depression,Other Past Surgical History Past Surgical History Bariatric Surgery Smoking History Smoking history Current every day smoker Aproximately how many 7 cigarettes per day Alcohol/Substance Use Hx Alcohol Use No History of Substance Use Prescription (no illicit drug use in , follow by substance abuse clinic and psych) Social History Usual Living Arrangement Alone ADL Independent History of Recent Travel No Ambulatory Orders Ascorbate Calcium [Vitamin C] 500 mg PO BID 07/11/17 Buprenorphine HCl/Naloxone HCl [Suboxone 12 mg-3 mg Sl Film] 1 each SL BID 07/11 Calcium Carbonate [Calcium] 500 mg PO BID 07/11/17 Cetirizine HCl [All Day Allergy] 10 mg PO DAILY 07/11/17 Cholecalciferol (Vitamin D3) [Vitamin D3] 1,000 unit PO DAILY 07/11/17 Clonazepam [Klonopin] 1 mg PO TID 07/11/17 Cyanocobalamin [Vitamin B12 -] 100 mcg PO DAILY 07/11/17 Ferrous Sulfate 325 mg PO TID 07/11/17 Nicotine [Nicotine Patch 21 mg/24 hr] 1 each TD PRN 07/11/17 Pnv No.95/Ferrous Fum/Folic AC [ Vitamin Tablet] 1 each PO DAILY Ranitidine [Zantac -] 150 mg PO BID 07/11/17 Sennosides [Senna] 8.6 mg PO TID 07/11/17 Thiamine HCl 0 mg PO DAILY 07/11/17 Trazodone HCl 50 mg PO HS 07/11/17 CBCD WBC 7.8 K/mm3 (4.0-10.0) 07/11/17 09:30 RBC 2.91 M/mm3 (3.60-5.2) L 07/11/17 09:30 Hgb 8.1 GM/dL (10.7-15.3) L D 07/11/17 09:30 Hct 24.6 % (32.4-45.2) L D 07/11/17 09:30 MCV 84.6 fl (80-96) 07/11/17 09:30 MCHC 32.9 g/dl (32.0-36.0) 07/11/17 09:30 RDW 12.1 % (11.6-15.6) 07/11/17 09:30 Plt Count 262 K/MM3 (134-434) D 07/11/17 09:30 MPV 7.9 fl (7.5-11.1) 07/11/17 09:30 CMP Sodium 146 mmol/L (136-145) H 07/11/17 09:30 Potassium 4.4 mmol/L (3.5-5.1) 07/11/17 09:30 Chloride 111 mmol/L (98-107) H 07/11/17 09:30 Carbon Dioxide 28 mmol/L (21-32) 07/11/17 09:30 Anion Gap 7 (8-16) L 07/11/17 09:30 BUN 15 mg/dL (7-18) 07/11/17 09:30 Creatinine 0.5 mg/dL (0.55-1.02) L 07/11/17 09:30 Creat Clearance w eGFR > 60 (>60) 07/11/17 09:30 Random Glucose 127 mg/dL (74-106) H 07/11/17 09:30 Calcium 7.2 mg/dL (8.5-10.1) L 07/11/17 09:30 Total Bilirubin < 0.1 mg/dL (0.2-1.0) L D 07/11/17 09:30 AST 20 U/L (15-37) 07/11/17 09:30 ALT 24 U/L (12-78) 07/11/17 09:30 Alkaline Phosphatase 40 U/L (45-117) L 07/11/17 09:30 Total Protein 4.5 g/dl (6.4-8.2) L 07/11/17 09:30 Albumin 2.4 g/dl (3.4-5.0) L 07/11/17 09:30 CARDIAC ENZYMES Creatine Kinase 60 IU/L (26-192) 07/11/17 09:30 Troponin I < 0.02 ng/ml (0.00-0.05) 07/11/17 09:30 Vital Signs Temp 98.8 F 07/11/17 18:00 Pulse 78 07/11/17 18:00 Resp 21 07/11/17 18:00 BP 104/82 07/11/17 18:00 Pulse Ox 100 07/11/17 19:30 Intake & Output 07/10/17 07/11/17 07/11/17 23:59 11:59 23:59 Intake Total 1861 Output Total 1050 Balance 811 Weight 99.79 kg 99.79 kg Intake: IV 1350 Normal Saline - 1,000 ml 100 @ 125 mls/hr IV ASDIR VIJAYA Rx#:[id number] Packed Cells 511 Output: Urine 1050 [place] 1050 Other: Voiding Method Indwelling Catheter Bowel Movement Yes: loose bloody # Bowel Movements 1 Height 5 ft 11 in 5 ft 11 in Body Mass Index (BMI) 30.7 30.7 Weight Measurement Method Stated by Caregiver EKG: SR, no ectopy, normal intervals, no acute changes No CXR PE: Gen: non toxic, awake, alert HEENT: mild conjuctival pallor PULM: Clear anterior CV: RRR ABD: soft, NT EXT: w/w/p trace edema NEuro: non-focal. A/ 27 y/o fem with bleeding duodenal ulcer now with apparent hemostasis after EGD with Dr Krause P/ -PPI gtt -serial CBC, repeat after 3 prbc in lab -NPO -clears in am if cont hemostasis -f/u biopsy -suboxone.ativan as per Psych/Detox -O/n observation, floor in am -SCD for DVT prophy -further anemia workup as outpat, vit def/absorb may be contributing. Otto ACNP 2334 Critical Care Total Critical Care Time (in minutes): 35 Critical Care Statement: The care of this patient involved high complexity decision making to prevent further life threatening deterioration of the patient 's condition and/or to evaluate & treat vital organ system(s) failure or risk of failure.
[2017-07-11] MEDS ORDERED: BUPRENORPHINE/NALOXONE 2 MG/0.5 MG FILM PACKET ONE (21:05)
[2017-07-11] MEDS: CHLORHEXIDINE GLUCONATE 4% CLEANSER FOR DECOLONIZATION TP SCH (21:08)
[2017-07-11] MEDS ORDERED: LORazepam 2 MG/ML SDV VIAL IM ONE (21:24)
[2017-07-11 21:33] LABS: HEMATOCRIT 23.4 % (32.4-45.2); MCH 28.6 pg (25.7-33.7); MCHC 34.1 g/dl (32.0-36.0); MEAN CELL VOLUME 83.9 fl (80-96); MEAN PLT VOLUME 8.4 fl (7.5-11.1); PLATELET COUNT 171 K/MM3 (134-434); RBC 2.79 M/mm3 (3.60-5.2); RDW 13.2 % (11.6-15.6); WHITE BLOOD COUNT 7.8 K/mm3 (4.0-10.0)
[2017-07-11] MEDS: MUPIROCIN 2% TOPICAL OINTMENT FOR DECOLONIZATION NS SCH (21:43)
[2017-07-11] MEDS: BUPRENORPHINE/NALOXONE 8 MG/2 MG FILM PACKET SL SCH (21:57)
[2017-07-11] MEDS: BUPRENORPHINE/NALOXONE 2 MG/0.5 MG FILM PACKET SL SCH (21:57)
[2017-07-11] MEDS ORDERED: BUPRENORPHINE HCL/NALOXONE 12 MG-3 MG SL FILM PACKET SL SCH (22:00)
[2017-07-11] MEDS ORDERED: FUROSEMIDE 40 MG/4 ML INJECTABLE VIAL IVPUSH ONE (22:15)
[2017-07-12] MEDS: ACETAMINOPHEN 1000 MG/100 ML VIAL (NON FORMULARY) IVPB PRN ×3 (00:23→13:36)
[2017-07-12] MEDS: PANTOPRAZOLE SODIUM 160 MG in DEXTROSE 5%-WATER - 290 ML IVPB SCH ×3 (00:35→20:47)
[2017-07-12 05:58] LABS: BASO % 0.3 % (0-2.0); EOS % 0.9 % (0-4.5); HEMOGLOBIN 8.6 GM/dL (10.7-15.3); LYMPH % 24.6 % (8-40); MCH 28.9 pg (25.7-33.7); MCHC 34.6 g/dl (32.0-36.0); MEAN CELL VOLUME 83.5 fl (80-96); MEAN PLT VOLUME 8.2 fl (7.5-11.1); MONO % 5.1 % (3.8-10.2); NEUT % 69.1 % (42.8-82.8); PLATELET COUNT 160 K/MM3 (134-434); RBC 2.99 M/mm3 (3.60-5.2); RDW 13.2 % (11.6-15.6); WHITE BLOOD COUNT 8.5 K/mm3 (4.0-10.0)
[2017-07-12] MEDS: SUCRALFATE 1 GM/10 ML UNIT DOSE CUPS PO SCH ×4 (06:18→21:12)
[2017-07-12 08:17] LABS: ALBUMIN 2.4 g/dl (3.4-5.0); ANION GAP 6 (8-16); BLOOD UREA NITROGEN 14 mg/dL (7-18); CALCIUM 7.6 mg/dL (8.5-10.1); CHLORIDE 108 mmol/L (98-107); CO2 29 mmol/L (21-32); CREATININE 0.4 mg/dL (0.55-1.02); GLUCOSE,RANDOM 79 mg/dL (74-106); POTASSIUM 3.3 mmol/L (3.5-5.1); SGOT/AST 15 U/L (15-37); SGPT/ALT 21 U/L (12-78); SODIUM 143 mmol/L (136-145)
[2017-07-12 08:28] LABS: ALK PHOS 36 U/L (45-117); BILIRUBIN,TOTAL 0.4 mg/dL (0.2-1.0); TOT PROT 4.4 g/dl (6.4-8.2)
[2017-07-12] MEDS ORDERED: CALCIUM GLUCONATE 10% - 1,000 MG/10 ML VIAL IVPB ONE (08:45)
[2017-07-12] MEDS: KCL 10 MEQ IVPB 10 MEQ/100 ML INFUS.BAG IVPB SCH ×2 (09:47→11:22)
[2017-07-12] MEDS: BUPRENORPHINE/NALOXONE 2 MG/0.5 MG FILM PACKET SL SCH ×2 (09:50→21:11)
[2017-07-12] MEDS: BUPRENORPHINE/NALOXONE 8 MG/2 MG FILM PACKET SL SCH ×2 (09:51→21:24)
--- NOTE | 2017-07-12 10:10 | EKG ---
Test Reason : Blood Pressure : / mmHG Vent. Rate : 097 BPM Atrial Rate : 097 BPM P-R Int : 120 ms QRS Dur : 080 ms QT Int : 342 ms P-R-T Axes : 066 043 055 degrees QTc Int : 434 ms NORMAL SINUS RHYTHM NORMAL ECG NO PREVIOUS ECGS AVAILABLE Confirmed by LUIS A SCHMITZ, AMBER ([id number]) on 07/12/2017 10:09:43 AM Referred By: Confirmed By:AMBER GUNN MD
[2017-07-12] MEDS ORDERED: PT OWN MED DRAWER 7, Y5N ONE ×3 (11:04→21:22)
--- NOTE | 2017-07-12 11:09 | PN ---
Progress Note, Physician Chief Complaint: No events. No stigmata of ongoing GI bleeding. Asymptomatic. - Current Medication List Current Medications: Active Medications Acetaminophen (Ofirmev Injection -) 1,000 mg IVPB Q6H PRN PRN Reason: PAIN LEVEL 6-10 Last Admin: 07/12/17 08:10 Dose: 1,000 mg Buprenorphine/Naloxone (Suboxone 8mg/2mg Sl Film -) 1 each SL BID VIJAYA Last Admin: 07/12/17 09:51 Dose: 1 each Buprenorphine/Naloxone (Suboxone 2mg/0.5mg Sl Film -) 2 each SL BID VIJAYA Last Admin: 07/12/17 09:50 Dose: 2 each Chlorhexidine Gluconate (Hibiclens For Decolonization -) 1 applic TP HS [facility] Last Admin: 07/11/17 21:08 Dose: 1 applic Pantoprazole Sodium 160 mg/ (Dextrose) 290 mls @ 14.5 mls/hr IVPB Q10H VIJAYA PRN Reason: 8 MG/HR Last Admin: 07/12/17 10:43 Dose: 14.5 mls/hr Mupirocin (Bactroban Ointment (For Decolonization) -) 1 applic NS BID [facility] Stop: 07/16/17 21:59 Last Admin: 07/11/17 21:43 Dose: 1 applic Sucralfate (Carafate Oral Suspension -) 1 gm PO ACHS [facility] Last Admin: 07/12/17 06:18 Dose: Not Given - Objective Vital Signs: Vital Signs Temperature 98.4 F 07/12/17 10:00 Pulse Rate 77 07/12/17 10:00 Respiratory Rate 14 07/12/17 10:00 Blood Pressure 116/62 07/12/17 10:00 O2 Sat by Pulse Oximetry (%) 100 07/11/17 19:30 Constitutional: Yes: No Distress, Pallor Eyes: Yes: Conjunctiva Clear HENT: Yes: Atraumatic Neck: Yes: Supple Cardiovascular: No: Bradycardia, Tachycardia Respiratory: Yes: Regular Gastrointestinal: Yes: Soft. No: Rectal Bleeding, Tenderness, Vomiting Neurological: Yes: Alert Labs: CBC, BMP 07/12/17 05:17 07/12/17 05:17 INR, PTT INR 1.15 (0.82-1.09) H 07/11/17 09:30 Fibrinogen 166.0 mg/dL (238-498) L 07/11/17 09:32 Laboratory Last Values WBC 8.5 K/mm3 (4.0-10.0) 07/12/17 05:17 RBC 2.99 M/mm3 (3.60-5.2) L 07/12/17 05:17 Hgb 8.6 GM/dL (10.7-15.3) L 07/12/17 05:17 Hct 25.0 % (32.4-45.2) L 07/12/17 05:17 MCV 83.5 fl (80-96) 07/12/17 05:17 MCH 28.9 pg (25.7-33.7) 07/12/17 05:17 MCHC 34.6 g/dl (32.0-36.0) 07/12/17 05:17 RDW 13.2 % (11.6-15.6) 07/12/17 05:17 Plt Count 160 K/MM3 (134-434) 07/12/17 05:17 MPV 8.2 fl (7.5-11.1) 07/12/17 05:17 Neutrophils % 69.1 % (42.8-82.8) 07/12/17 05:17 Lymphocytes % 24.6 % (8-40) 07/12/17 05:17 Monocytes % 5.1 % (3.8-10.2) 07/12/17 05:17 Eosinophils % 0.9 % (0-4.5) 07/12/17 05:17 Basophils % 0.3 % (0-2.0) 07/12/17 05:17 Haptoglobin 92 mg/dL (34-200) 07/11/17 17:00 PT with INR 13.00 SEC (9.98-11.88) H 07/11/17 09:30 INR 1.15 (0.82-1.09) H 07/11/17 09:30 PTT (Actin FS) 27.1 SECONDS (26.9-34.4) 07/11/17 20:45 Fibrinogen 166.0 mg/dL (238-498) L 07/11/17 09:32 D-Dimer 260 ng/ml (0-500) 07/11/17 09:32 Sodium 143 mmol/L (136-145) 07/12/17 05:17 Potassium 3.3 mmol/L (3.5-5.1) L 07/12/17 05:17 Chloride 108 mmol/L (98-107) H 07/12/17 05:17 Carbon Dioxide 29 mmol/L (21-32) 07/12/17 05:17 Anion Gap 6 (8-16) L 07/12/17 05:17 BUN 14 mg/dL (7-18) 07/12/17 05:17 Creatinine 0.4 mg/dL (0.55-1.02) L 07/12/17 05:17 Creat Clearance w eGFR > 60 (>60) 07/12/17 05:17 Random Glucose 79 mg/dL (74-106) 07/12/17 05:17 Specific [place] Cancelled 07/11/17 09:40 Lactic Acid 1.1 mmol/L (0.0-2.0) 07/11/17 12:16 Calcium 7.6 mg/dL (8.5-10.1) L 07/12/17 05:17 Total Bilirubin 0.4 mg/dL (0.2-1.0) D 07/12/17 05:17 AST 15 U/L (15-37) 07/12/17 05:17 ALT 21 U/L (12-78) 07/12/17 05:17 Alkaline Phosphatase 36 U/L (45-117) L 07/12/17 05:17 LD Total 123 U/L (84-246) 07/11/17 09:32 Creatine Kinase 60 IU/L (26-192) 07/11/17 09:30 Troponin I < 0.02 ng/ml (0.00-0.05) 07/11/17 09:30 Total Protein 4.4 g/dl (6.4-8.2) L 07/12/17 05:17 Albumin 2.4 g/dl (3.4-5.0) L 07/12/17 05:17 Beta HCG, Quant < 1.0 mIU/ml 07/11/17 09:32 Serum , Qual Negative 07/11/17 11:00 Urine Color Yellow 07/11/17 09:40 Urine Appearance Clear 07/11/17 09:40 Urine pH 6.0 (5.0-8.0) 07/11/17 09:40 Ur Specific [place] 1.027 (1.001-1.035) 07/11/17 09:40 Urine Protein Negative (NEGATIVE) 07/11/17 09:40 Urine Glucose (UA) Negative (NEGATIVE) 07/11/17 09:40 Urine Ketones Negative (NEGATIVE) 07/11/17 09:40 Urine Blood Negative (NEGATIVE) 07/11/17 09:40 Urine Nitrite Negative (NEGATIVE) 07/11/17 09:40 Urine Bilirubin Negative (<2.0 mg/dL) 07/11/17 09:40 Urine Urobilinogen Negative mg/dL (0.2-1.0) 07/11/17 09:40 Ur Leukocyte Esterase Negative (NEGATIVE) 07/11/17 09:40 Stool Occult Blood Positive (NEGATIVE) 07/11/17 09:40 Urine Butalbital Cancelled 07/11/17 09:40 Ur Butalbital Confirm Cancelled 07/11/17 09:40 Salicylates < 1.700 mg/dL 07/11/17 09:30 Opiates Screen Negative ng/ml (NUPCBD=069) 07/11/17 10:38 Urine Opiates Screen Cancelled 07/11/17 09:40 Meperidine Cancelled 07/11/17 09:40 Urine Normeperidine Cancelled 07/11/17 09:40 U Normeperidine GC/MS Cancelled 07/11/17 09:40 Urine Codeine Cancelled 07/11/17 09:40 U Codeine Confrm GC/MS Cancelled 07/11/17 09:40 Urine Morphine Cancelled 07/11/17 09:40 Morphine Confirm GC/MS Cancelled 07/11/17 09:40 Urine Hydrocodone Cancelled 07/11/17 09:40 Ur Hydrocodone (GC/MS) Cancelled 07/11/17 09:40 Urine Oxycodone Cancelled 07/11/17 09:40 Ur Oxycodone GC/MS Cancelled 07/11/17 09:40 Oxymorphone Confirm Cancelled 07/11/17 09:40 Urine Oxymorphone Cancelled 07/11/17 09:40 U Oxycodone/Oxymorphon Cancelled 07/11/17 09:40 Methadone Screen Negative ng/ml (MIOEJP=013) 07/11/17 10:38 Ur Methadone Cancelled 07/11/17 09:40 Ur Methadone Confirm Cancelled 07/11/17 09:40 Ur Hydromorphone Cancelled 07/11/17 09:40 Ur Hydromorphone (GC/MS) Cancelled 07/11/17 09:40 Urine Propoxyphene Cancelled 07/11/17 09:40 U Propoxyphene/M GC/MS Cancelled 07/11/17 09:40 Acetaminophen 4.775 ug/mL 07/11/17 09:30 Barbiturate Screen Negative ng/ml (SKRQCW=688) 07/11/17 10:38 Ur Barbiturates Screen Cancelled 07/11/17 09:40 Urine Barbiturates Cancelled 07/11/17 09:40 Phencyclidine Screen Negative ng/ml (CUTOFF=25) 07/11/17 10:38 Ur Phencyclidine (PCP) Cancelled 07/11/17 09:40 Ur PCP Confirm (GC/MS) Cancelled 07/11/17 09:40 Amphetamines Cancelled 07/11/17 09:40 Amphetamines Grp GC/MS Cancelled 07/11/17 09:40 Ur Amphetamines Screen Negative ng/ml (PGCNEJ=633) 07/11/17 10:38 Urine Amphetamine Cancelled 07/11/17 09:40 Ur Amphetamines, Quant Cancelled 07/11/17 09:40 Methamphetamine Cancelled 07/11/17 09:40 Methamphetamine GC/MS Cancelled 07/11/17 09:40 MDMA (Ecstasy) Screen Negative ng/ml (ORLREB=864) 07/11/17 10:38 Urine Amobarbital Cancelled 07/11/17 09:40 Ur Amobarbital GC/MS Cancelled 07/11/17 09:40 Urine Pentobarbital Cancelled 07/11/17 09:40 U Pentobarbital GC/MS Cancelled 07/11/17 09:40 Urine Phenobarbital Cancelled 07/11/17 09:40 U Phenobarbital GC/MS Cancelled 07/11/17 09:40 Urine Secobarbital Cancelled 07/11/17 09:40 U Secobarbital GC/MS Cancelled 07/11/17 09:40 Urine Alprazolam Cancelled 07/11/17 09:40 U OH-Alprazolam GC/MS Cancelled 07/11/17 09:40 Benzodiazepines Screen Negative ng/ml (LSEXTC=969) 07/11/17 10:38 U Benzodiazepines Scrn Cancelled 07/11/17 09:40 Urine Clonazepam Cancelled 07/11/17 09:40 U 7-Amino Clonazep GC/MS Cancelled 07/11/17 09:40 Ur Nordiazepam Cancelled 07/11/17 09:40 Ur Nordiazepam GC/MS Cancelled 07/11/17 09:40 Flurazepam Cancelled 07/11/17 09:40 Flurazepam Confirm Cancelled 07/11/17 09:40 Lorazepam Cancelled 07/11/17 09:40 Urine Lorazepam Cancelled 07/11/17 09:40 Ur Oxazepam Cancelled 07/11/17 09:40 U Oxazepam Confm GC/MS Cancelled 07/11/17 09:40 Urine Temazepam Cancelled 07/11/17 09:40 Ur Temazepam (GC/MS) Cancelled 07/11/17 09:40 Urine Triazolam Cancelled 07/11/17 09:40 Ur Triazolam (GC/MS) Cancelled 07/11/17 09:40 Meperidine (GC/MS) Cancelled 07/11/17 09:40 Ur Meperidine Cancelled 07/11/17 09:40 Cocaine Screen Negative ng/ml (BEIKZV=883) 07/11/17 10:38 Cocaine & Metabolite Cancelled 07/11/17 09:40 Urine Cocaine Cancelled 07/11/17 09:40 Benzoylecgonine Cancelled 07/11/17 09:40 Cannabinoids Cancelled 07/11/17 09:40 Urine Cannabinoids Cancelled 07/11/17 09:40 U Marijuana (THC) Screen Negative ng/ml (CUTOFF=50) 07/11/17 10:38 Urine Marijuana (THC) Cancelled 07/11/17 09:40 Urine Ethyl Alcohol Cancelled 07/11/17 09:40 Blood Type A POSITIVE 07/11/17 09:30 Antibody Screen Negative 07/11/17 09:30 Crossmatch See Detail 07/11/17 09:30 Problem List - Problems (1) GI bleeding Code(s): K92.2 - GASTROINTESTINAL HEMORRHAGE, UNSPECIFIED (2) History of gastric bypass Code(s): Z98.84 - BARIATRIC SURGERY STATUS (3) Normocytic normochromic anemia Code(s): D64.9 - ANEMIA, UNSPECIFIED Assessment/Plan Bleeding, marginal ulcer. s/p epi injection, clipping and cautery. No overnight events. Hgb @ 8 g/dl Continue PPI IV, carafate. Supplement Iron Clear liquid diet Hgb daily Follow biopsies Avoid NSAIDs going forward.
[2017-07-12] MEDS: MUPIROCIN 2% TOPICAL OINTMENT FOR DECOLONIZATION NS SCH ×2 (11:22→21:49)
--- NOTE | 2017-07-12 11:25 | PN ---
Progress Note, Physician Chief Complaint: PATIENT SEEN AND EXAMINED HISTORY AND PHYSICAL REVIEWED AND I AGREE WITH THE RESIDENTS/HOSPITALIST FINDINGS AND PLAN. - Current Medication List Current Medications: Active Medications Acetaminophen (Ofirmev Injection -) 1,000 mg IVPB Q6H PRN PRN Reason: PAIN LEVEL 6-10 Last Admin: 07/12/17 08:10 Dose: 1,000 mg Buprenorphine/Naloxone (Suboxone 8mg/2mg Sl Film -) 1 each SL BID VIJAYA Last Admin: 07/12/17 09:51 Dose: 1 each Buprenorphine/Naloxone (Suboxone 2mg/0.5mg Sl Film -) 2 each SL BID VIJAYA Last Admin: 07/12/17 09:50 Dose: 2 each Chlorhexidine Gluconate (Hibiclens For Decolonization -) 1 applic TP HS [facility] Last Admin: 07/11/17 21:08 Dose: 1 applic Pantoprazole Sodium 160 mg/ (Dextrose) 290 mls @ 14.5 mls/hr IVPB Q10H VIJAYA PRN Reason: 8 MG/HR Last Admin: 07/12/17 10:43 Dose: 14.5 mls/hr Mupirocin (Bactroban Ointment (For Decolonization) -) 1 applic NS BID [facility] Stop: 07/16/17 21:59 Last Admin: 07/12/17 11:22 Dose: 1 applic Sucralfate (Carafate Oral Suspension -) 1 gm PO ACHS [facility] Last Admin: 07/12/17 11:22 Dose: 1 gm - Objective Vital Signs: Vital Signs Temperature 98.4 F 07/12/17 10:00 Pulse Rate 77 07/12/17 10:00 Respiratory Rate 14 07/12/17 10:00 Blood Pressure 116/62 07/12/17 10:00 O2 Sat by Pulse Oximetry (%) 100 07/11/17 19:30 Constitutional: Yes: Mild Distress Eyes: Yes: WNL HENT: Yes: WNL Neck: Yes: WNL Cardiovascular: Yes: WNL Respiratory: Yes: WNL Gastrointestinal: Yes: WNL Musculoskeletal: Yes: WNL Extremities: Yes: WNL Edema: No Peripheral Pulses WNL: Yes Wound/Incision: Yes: Clean/Dry Neurological: Yes: Other ...Motor Strength: WNL Psychiatric: Yes: Agitated Labs: CBC, BMP 07/12/17 05:17 07/12/17 05:17 INR, PTT INR 1.15 (0.82-1.09) H 07/11/17 09:30 Fibrinogen 166.0 mg/dL (238-498) L 07/11/17 09:32 Problem List - Problems (1) Benzodiazepine dependence Code(s): F13.20 - SEDATIVE, HYPNOTIC OR ANXIOLYTIC DEPENDENCE, UNCOMPLICATED (2) GI bleeding Code(s): K92.2 - GASTROINTESTINAL HEMORRHAGE, UNSPECIFIED (3) History of gastric bypass Code(s): Z98.84 - BARIATRIC SURGERY STATUS (4) Normocytic normochromic anemia Code(s): D64.9 - ANEMIA, UNSPECIFIED (5) Opioid dependence on agonist therapy Code(s): F11.20 - OPIOID DEPENDENCE, UNCOMPLICATED Assessment/Plan SUBSTANCE ABUSE OPIOD DEPENDENCE DR RANDALL FOR DETOX EVAL DVT PROPHYLAXIS OOB TO CHAIR WITH ASSIST CHECKING LABS ENDOCRINE FOLLOW UP FOR HYPOGLYCEMIA
--- NOTE | 2017-07-12 12:05 | PN ---
Teaching Attending Note Name of Resident: Christiano Morton ATTENDING PHYSICIAN STATEMENT I saw and evaluated the patient. I reviewed the resident's note and discussed the case with the resident. I agree with the resident's findings and plan as documented. SUBJECTIVE: Patient seen and examined in the ICU. Awake and alert. No occult bleeding noted. H&H stable. No CP or SOB. Intake & Output 07/09/17 07/10/17 07/11/17 07/12/17 23:59 23:59 23:59 23:59 Intake Total 1861 968 Output Total 1350 2000 Balance 511 -1032 Weight 220 lb 221 lb 4.8 oz Last Vital Signs Temp Pulse Resp BP Pulse Ox 98.4 F 77 14 116/62 100 07/12/17 10:00 07/12/17 10:00 07/12/17 10:00 07/12/17 10:00 07/11/17 19:30 Active Medications Acetaminophen (Ofirmev Injection -) 1,000 mg IVPB Q6H PRN PRN Reason: PAIN LEVEL 6-10 Last Admin: 07/12/17 08:10 Dose: 1,000 mg Buprenorphine/Naloxone (Suboxone 8mg/2mg Sl Film -) 1 each SL BID VIJAYA Last Admin: 07/12/17 09:51 Dose: 1 each Buprenorphine/Naloxone (Suboxone 2mg/0.5mg Sl Film -) 2 each SL BID VIJAYA Last Admin: 07/12/17 09:50 Dose: 2 each Chlorhexidine Gluconate (Hibiclens For Decolonization -) 1 applic TP HS VIJAYA Last Admin: 07/11/17 21:08 Dose: 1 applic Pantoprazole Sodium 160 mg/ (Dextrose) 290 mls @ 14.5 mls/hr IVPB Q10H VIJAYA PRN Reason: 8 MG/HR Last Admin: 07/12/17 10:43 Dose: 14.5 mls/hr Mupirocin (Bactroban Ointment (For Decolonization) -) 1 applic NS BID [facility] Stop: 07/16/17 21:59 Last Admin: 07/12/17 11:22 Dose: 1 applic Sucralfate (Carafate Oral Suspension -) 1 gm PO ACHS VIJAYA Last Admin: 07/12/17 11:22 Dose: 1 gm Gen: awake, alert, NAD HEENT: mild conjuctival pallor PULM: Clear anterior CV: RRR ABD: soft, NT EXT: trace edema Neuro: non-focal. Laboratory Results - last 24 hr 07/11/17 07/11/17 07/11/17 09:30 12:16 17:00 WBC RBC Hgb Hct MCV MCH MCHC RDW Plt Count MPV Neutrophils % Lymphocytes % Monocytes % Eosinophils % Basophils % Haptoglobin 92 PTT (Actin FS) Sodium Potassium Chloride Carbon Dioxide Anion Gap BUN Creatinine Creat Clearance w eGFR Random Glucose Lactic Acid 1.1 Calcium Total Bilirubin AST ALT Alkaline Phosphatase Total Protein Albumin Blood Type A POSITIVE Antibody Screen Negative Crossmatch See Detail 07/11/17 07/11/17 07/12/17 20:45 20:45 05:17 WBC 7.8 8.5 RBC 2.79 L 2.99 L Hgb 8.0 L 8.6 L Hct 23.4 L 25.0 L MCV 83.9 83.5 MCH 28.6 28.9 MCHC 34.1 34.6 RDW 13.2 13.2 Plt Count 171 D 160 MPV 8.4 8.2 Neutrophils % 69.1 Lymphocytes % 24.6 Monocytes % 5.1 Eosinophils % 0.9 Basophils % 0.3 Haptoglobin PTT (Actin FS) 27.1 Sodium Potassium Chloride Carbon Dioxide Anion Gap BUN Creatinine Creat Clearance w eGFR Random Glucose Lactic Acid Calcium Total Bilirubin AST ALT Alkaline Phosphatase Total Protein Albumin Blood Type Antibody Screen Crossmatch 07/12/17 05:17 WBC RBC Hgb Hct MCV MCH MCHC RDW Plt Count MPV Neutrophils % Lymphocytes % Monocytes % Eosinophils % Basophils % Haptoglobin PTT (Actin FS) Sodium 143 Potassium 3.3 L Chloride 108 H Carbon Dioxide 29 Anion Gap 6 L BUN 14 Creatinine 0.4 L Creat Clearance w eGFR > 60 Random Glucose 79 Lactic Acid Calcium 7.6 L Total Bilirubin 0.4 D AST 15 ALT 21 Alkaline Phosphatase 36 L Total Protein 4.4 L Albumin 2.4 L Blood Type Antibody Screen Crossmatch IMP: Acute blood loss anemia due to bleeding duodenal ulcer S/P EGD History of gastric bypass Substance dependence PLAN: PPI PO as tolerated Normal transfusion thresholds Follow CBC Follow biopsy Suboxone/ativan as per Psych/Detox Floor Mechanical VTE prophylaxis Dr Kilpatrick Critical care time spent in reviewing chart, evaluating patient and formulating plan - 36 minutes.
--- NOTE | 2017-07-12 14:38 | PN ---
Physical Exam: SUBJECTIVE: Ms. Zuluaga endorses a headache but denies any nausea, vomiting , or diarrhea at this time. She has no other complaints this AM. OBJECTIVE: Vital Signs Period Temp Pulse Resp BP Sys/Park Pulse Ox Last 24 Hr 98.2 F-98.8 F 62-87 12-21 103-137/53-82 100-100 GENERAL: The patient is awake, alert, and fully oriented, in no acute distress. HEAD: Normal with no signs of trauma. EYES: PERRL, extraocular movements intact, sclera anicteric, conjunctiva clear. No ptosis. ENT: Ears normal, nares patent, oropharynx clear without exudates, moist mucous membranes. NECK: Trachea midline, full range of motion, supple. LUNGS: Breath sounds equal, clear to auscultation bilaterally, no wheezes, no crackles, no accessory muscle use. HEART: Regular rate and rhythm, S1, S2 without murmur, rub or gallop. ABDOMEN: Soft, nontender, nondistended, normoactive bowel sounds, no guarding, no rebound, no hepatosplenomegaly, no masses. EXTREMITIES: 2+ pulses, warm, well-perfused, no edema. NEUROLOGICAL: Cranial nerves II through XII grossly intact. Normal speech, gait not observed. PSYCH: Normal mood, normal affect. SKIN: Warm, dry, normal turgor, no rashes or lesions noted Laboratory Results - last 24 hr 07/11/17 07/11/17 07/11/17 09:30 17:00 20:45 WBC RBC Hgb Hct MCV MCH MCHC RDW Plt Count MPV Neutrophils % Lymphocytes % Monocytes % Eosinophils % Basophils % Haptoglobin 92 PTT (Actin FS) 27.1 Sodium Potassium Chloride Carbon Dioxide Anion Gap BUN Creatinine Creat Clearance w eGFR Random Glucose Calcium Total Bilirubin AST ALT Alkaline Phosphatase Total Protein Albumin Blood Type A POSITIVE Antibody Screen Negative Crossmatch See Detail 07/11/17 07/12/17 07/12/17 20:45 05:17 05:17 WBC 7.8 8.5 RBC 2.79 L 2.99 L Hgb 8.0 L 8.6 L Hct 23.4 L 25.0 L MCV 83.9 83.5 MCH 28.6 28.9 MCHC 34.1 34.6 RDW 13.2 13.2 Plt Count 171 D 160 MPV 8.4 8.2 Neutrophils % 69.1 Lymphocytes % 24.6 Monocytes % 5.1 Eosinophils % 0.9 Basophils % 0.3 Haptoglobin PTT (Actin FS) Sodium 143 Potassium 3.3 L Chloride 108 H Carbon Dioxide 29 Anion Gap 6 L BUN 14 Creatinine 0.4 L Creat Clearance w eGFR > 60 Random Glucose 79 Calcium 7.6 L Total Bilirubin 0.4 D AST 15 ALT 21 Alkaline Phosphatase 36 L Total Protein 4.4 L Albumin 2.4 L Blood Type Antibody Screen Crossmatch Active Medications Generic Name Dose Route Start Last Admin Trade Name Juancho PRN Reason Stop Dose Admin Buprenorphine/Naloxone 1 each 07/11/17 22:00 07/12/17 09:51 Suboxone 8mg/2mg Sl Film - SL 1 each BID VIJAYA Administration Buprenorphine/Naloxone 2 each 07/11/17 22:00 07/12/17 09:50 Suboxone 2mg/0.5mg Sl Film - SL 2 each BID VIJAYA Administration Chlorhexidine Gluconate 1 applic 07/11/17 22:00 07/11/17 21:08 Hibiclens For Decolonization - TP 1 applic HS VIJAYA Administration Pantoprazole Sodium 160 mg/ 290 mls @ 14.5 mls/hr 07/11/17 12:45 07/12/17 10: 43 Dextrose IVPB 14.5 mls/hr Q10H VIJAYA Administration 8 MG/HR Mupirocin 1 applic 07/11/17 22:00 07/12/17 11:22 Bactroban Ointment (For Decolonization) - NS 07/16/17 21:59 1 applic BID VIJAYA Administration Sucralfate 1 gm 07/11/17 16:30 07/12/17 11:22 Carafate Oral Suspension - PO 1 gm ACHS VIJAYA Administration ASSESSMENT/PLAN: Ms. Zuluaga is a 27 yo female w/ pmh of elective gastric bypass, anemia, daily advil use, prescription pill abuse (currently on suboxone 03/10), anxiety, and heavy smoking who presented to ER today with episode of heavy rectal bleeding and syncope; now s/p endoscopy for ulcer repair. Gastric Ulcer - S/P repair - Gastroenterology consulted, requests 24 hour observation with octreotide if further symptoms of bleeding occurs. Can expect melena for next few days. Anemia - S/P 2 additional units PRBC's, H/H 8.6/25.0 - will continue to follow H/H Substance abuse - Suboxone - per PCP (Dr. Amador - mobile: [phone]). 12mg BID. PCP requests fax of chart at discharge. - Detox consulted - Psych consulted Nicotine abuse - Patient refused nicotine patch FEN - Oral fluids as tolerated - Replete electrolytes pRN - Clear liquid diet PPX - Pantoprazole - SCDs Dispo: Transfer to med/surg for further care. Visit type - Emergency Visit Emergency Visit: Yes ED Registration Date: 07/11/17 Care time: The patient presented to the Emergency Department on the above date and was hospitalized for further evaluation of their emergent condition. - New Patient This patient is new to me today: No - Critical Care Critical Care patient: Yes Total Critical Care Time (in minutes): 41 Critical Care Statement: The care of this patient involved high complexity decision making to prevent further life threatening deterioration of the patient 's condition and/or to evaluate & treat vital organ system(s) failure or risk of failure.
[2017-07-12] MEDS ORDERED: diazePAM 5 MG TABLET PO ONE (17:39)
[2017-07-12] MEDS ORDERED: diazePAM 5 MG TABLET PO PRN (17:39)
[2017-07-12] MEDS ORDERED: clonazePAM 2 MG TABLET PO ONE (18:05)
[2017-07-12] MEDS ORDERED: ZOLPIDEM TARTRATE 5 MG TABLET PO PRN (18:06)
[2017-07-12] MEDS ORDERED: hydrOXYzine PAMOATE 50 MG CAPSULE (FP) PO ONE (18:06)
[2017-07-12] MEDS: FERROUS SO4 325 MG TABLET (FP) PO SCH (18:21)
[2017-07-12] MEDS: POTASSIUM CHLORIDE TABS 20 MEQ TABLET.ER (FP) PO SCH (21:11)
[2017-07-12] MEDS: THIAMINE HCL 100 MG TABLET (FP) PO SCH (21:11)
[2017-07-12] MEDS: clonazePAM 0.5 MG TABLET PO SCH (21:11)
[2017-07-12] MEDS: traZODone HCL 50 MG TABLET (FP) PO SCH (21:11)
[2017-07-12] MEDS: DOCUSATE SODIUM 100 MG CAPSULE (FP) PO SCH (21:12)
[2017-07-12] MEDS: CHLORHEXIDINE GLUCONATE 4% CLEANSER FOR DECOLONIZATION TP SCH (21:49)
[2017-07-12] MEDS ORDERED: diazePAM 5 MG TABLET PO SCH (22:00)
[2017-07-13] MEDS: clonazePAM 0.5 MG TABLET PO SCH ×3 (06:44→21:53)
[2017-07-13] MEDS: SUCRALFATE 1 GM/10 ML UNIT DOSE CUPS PO SCH ×4 (06:44→21:52)
[2017-07-13] MEDS: PANTOPRAZOLE SODIUM 160 MG in DEXTROSE 5%-WATER - 290 ML IVPB SCH ×2 (06:56→15:12)
[2017-07-13 07:50] LABS: BASO % 0.4 % (0-2.0); EOS % 4.5 % (0-4.5); HEMATOCRIT 21.9 % (32.4-45.2); HEMOGLOBIN 7.8 GM/dL (10.7-15.3); LYMPH % 31.9 % (8-40); MCH 29.7 pg (25.7-33.7); MCHC 35.6 g/dl (32.0-36.0); MEAN CELL VOLUME 83.4 fl (80-96); MONO % 6.7 % (3.8-10.2); NEUT % 56.5 % (42.8-82.8); PLATELET COUNT 157 K/MM3 (134-434); RBC 2.63 M/mm3 (3.60-5.2); RDW 13.1 % (11.6-15.6)
[2017-07-13] MEDS: FERROUS SO4 325 MG TABLET (FP) PO SCH ×3 (08:10→18:24)
[2017-07-13] MEDS ORDERED: BUPRENORPHINE/NALOXONE 8 MG/2 MG FILM PACKET SL SCH (10:00)
[2017-07-13] MEDS: MUPIROCIN 2% TOPICAL OINTMENT FOR DECOLONIZATION NS SCH (10:39)
[2017-07-13] MEDS: POTASSIUM CHLORIDE TABS 20 MEQ TABLET.ER (FP) PO SCH ×2 (10:39→21:53)
[2017-07-13] MEDS: BUPRENORPHINE/NALOXONE 8 MG/2 MG FILM PACKET SL SCH ×3 (10:40→21:53)
[2017-07-13] MEDS: PRENATAL VITAMINS W/ FOLIC ACID TABLET (FP) PO SCH (10:40)
--- NOTE | 2017-07-13 11:49 | PN ---
Progress Note, Physician Chief Complaint: AWAKE ALERT FEELING BETTER - Current Medication List Current Medications: Active Medications Acetaminophen (Tylenol -) 650 mg PO Q6H PRN PRN Reason: PAIN OR FEVER Buprenorphine/Naloxone (Suboxone 8mg/2mg Sl Film -) 1 each SL TID [facility] Last Admin: 07/13/17 10:40 Dose: 1 each Chlorhexidine Gluconate (Hibiclens For Decolonization -) 1 applic TP HS [facility] Last Admin: 07/12/17 21:49 Dose: Not Given Clonazepam (Klonopin -) 1 mg PO TID [facility] Last Admin: 07/13/17 06:44 Dose: 1 mg Docusate Sodium (Colace -) 300 mg PO HS [facility] Last Admin: 07/12/17 21:12 Dose: 300 mg Ferrous Sulfate (Feosol -) 325 mg PO TIDCM [facility] Last Admin: 07/13/17 08:10 Dose: 325 mg Hydroxyzine Pamoate (Vistaril -) 50 mg PO Q6H PRN PRN Reason: FOR ITCHING Pantoprazole Sodium 160 mg/ (Dextrose) 290 mls @ 14.5 mls/hr IVPB Q10H [facility] PRN Reason: 8 MG/HR Last Admin: 07/13/17 06:56 Dose: Not Given Nicotine (Nicoderm Patch -) 21 mg TD DAILY [facility] Potassium Chloride (K-Dur -) 20 meq PO BID [facility] Last Admin: 07/13/17 10:39 Dose: 20 meq Multivit/Folic Acid/Iron ( Vitamins (Sjr) -) 1 tab PO DAILY [facility] Last Admin: 07/13/17 10:40 Dose: 1 tab Sucralfate (Carafate Oral Suspension -) 1 gm PO ACHS [facility] Last Admin: 07/13/17 06:44 Dose: 1 gm Thiamine HCl (Vitamin B1 -) 100 mg PO HS [facility] Last Admin: 07/12/17 21:11 Dose: 100 mg Trazodone HCl (Desyrel -) 50 mg PO HS [facility] Last Admin: 07/12/17 21:11 Dose: 50 mg Zolpidem Tartrate (Ambien -) 5 mg PO HS PRN PRN Reason: INSOMNIA - Objective Vital Signs: Vital Signs Temperature 98 F 07/13/17 10:47 Pulse Rate 86 07/13/17 10:47 Respiratory Rate 20 07/13/17 10:47 Blood Pressure 103/53 07/13/17 10:47 O2 Sat by Pulse Oximetry (%) 99 07/12/17 21:00 Constitutional: Yes: Mild Distress Eyes: Yes: WNL HENT: Yes: WNL Neck: Yes: WNL Cardiovascular: Yes: WNL Respiratory: Yes: WNL Gastrointestinal: Yes: WNL Genitourinary: Yes: WNL Musculoskeletal: Yes: WNL Extremities: Yes: WNL Edema: No Peripheral Pulses WNL: Yes Integumentary: Yes: WNL Wound/Incision: Yes: Clean/Dry Neurological: Yes: WNL ...Motor Strength: WNL Psychiatric: Yes: Agitated Labs: CBC, BMP 07/13/17 07:10 07/12/17 05:17 INR, PTT INR 1.15 (0.82-1.09) H 07/11/17 09:30 Fibrinogen 166.0 mg/dL (238-498) L 07/11/17 09:32 Problem List - Problems (1) Benzodiazepine dependence Code(s): F13.20 - SEDATIVE, HYPNOTIC OR ANXIOLYTIC DEPENDENCE, UNCOMPLICATED (2) GI bleeding Code(s): K92.2 - GASTROINTESTINAL HEMORRHAGE, UNSPECIFIED (3) History of gastric bypass Code(s): Z98.84 - BARIATRIC SURGERY STATUS (4) Normocytic normochromic anemia Code(s): D64.9 - ANEMIA, UNSPECIFIED (5) Opioid dependence on agonist therapy Code(s): F11.20 - OPIOID DEPENDENCE, UNCOMPLICATED Assessment/Plan TRANSFUSE [facility]BC ADVANCE DIET CHECK LABS IN MORNING OOB TO CHAIR PSYCH F/U
[2017-07-13] MEDS: ACETAMINOPHEN 325 MG TABLET (FP) PO PRN ×2 (12:25→22:06)
[2017-07-13] MEDS: NICOTINE 21 MG/24 HOURS TOPICAL PATCH TD SCH (12:26)
[2017-07-13 12:59] LABS: HEMATOCRIT 22.7 % (32.4-45.2); HEMOGLOBIN 7.9 GM/dL (10.7-15.3); MCH 29.3 pg (25.7-33.7); MCHC 34.6 g/dl (32.0-36.0); MEAN CELL VOLUME 84.7 fl (80-96); PLATELET COUNT 150 K/MM3 (134-434); RBC 2.68 M/mm3 (3.60-5.2); RDW 13.3 % (11.6-15.6); WHITE BLOOD COUNT 5.3 K/mm3 (4.0-10.0)
[2017-07-13 13:21] LABS: ANION GAP 8 (8-16); BLOOD UREA NITROGEN 9 mg/dL (7-18); CALCIUM 7.7 mg/dL (8.5-10.1); CHLORIDE 104 mmol/L (98-107); CO2 29 mmol/L (21-32); CREATININE 0.5 mg/dL (0.55-1.02); GLUCOSE,RANDOM 109 mg/dL (74-106); MAGNESIUM 1.6 mg/dL (1.8-2.4); POTASSIUM 3.6 mmol/L (3.5-5.1); SODIUM 141 mmol/L (136-145)
[2017-07-13] MEDS ORDERED: MAGNESIUM 1GM/D5W 100ML - 100 ML IVPB IVPB ONE (13:30)
[2017-07-13] MEDS: DOCUSATE SODIUM 100 MG CAPSULE (FP) PO SCH (21:52)
[2017-07-13] MEDS: hydrOXYzine PAMOATE 50 MG CAPSULE (FP) PO PRN (21:53)
[2017-07-13] MEDS: traZODone HCL 50 MG TABLET (FP) PO SCH (21:53)
[2017-07-13] MEDS: THIAMINE HCL 100 MG TABLET (FP) PO SCH (21:53)
[2017-07-14] MEDS: PANTOPRAZOLE SODIUM 160 MG in DEXTROSE 5%-WATER - 290 ML IVPB SCH ×3 (00:17→20:33)
[2017-07-14 04:05] LABS: COCAINE, UR NEGATIVE ng/ml (CUTOFF=300); METHADONE, UR NEGATIVE ng/ml (CUTOFF=300); OPIATES, URI NEGATIVE ng/ml (CUTOFF=300); PHENCYCLIDINE,URINE NEGATIVE ng/ml (CUTOFF=25); URINE AMPHETAMINES NEGATIVE ng/ml (CUTOFF=500); URINE BARBITURATES NEGATIVE ng/ml (CUTOFF=200); URINE BENZODIAZEPINES NEGATIVE ng/ml (CUTOFF=200)
[2017-07-14] MEDS: SUCRALFATE 1 GM/10 ML UNIT DOSE CUPS PO SCH ×4 (06:05→21:27)
[2017-07-14] MEDS: BUPRENORPHINE/NALOXONE 8 MG/2 MG FILM PACKET SL SCH ×3 (06:05→21:27)
[2017-07-14] MEDS: ACETAMINOPHEN 325 MG TABLET (FP) PO PRN ×3 (06:05→21:27)
[2017-07-14] MEDS: clonazePAM 0.5 MG TABLET PO SCH ×3 (06:05→21:27)
[2017-07-14 07:45] LABS: ANION GAP 9 (8-16); BLOOD UREA NITROGEN 9 mg/dL (7-18); CALCIUM 8.2 mg/dL (8.5-10.1); CHLORIDE 106 mmol/L (98-107); CO2 28 mmol/L (21-32); GLUCOSE,RANDOM 82 mg/dL (74-106); SODIUM 143 mmol/L (136-145)
[2017-07-14 07:46] LABS: CREATININE 0.5 mg/dL (0.55-1.02)
[2017-07-14 08:28] LABS: BASO % 0.4 % (0-2.0); EOS % 3.7 % (0-4.5); HEMATOCRIT 28.1 % (32.4-45.2); HEMOGLOBIN 9.8 GM/dL (10.7-15.3); LYMPH % 21.5 % (8-40); MCH 29.9 pg (25.7-33.7); MCHC 34.8 g/dl (32.0-36.0); MEAN CELL VOLUME 85.8 fl (80-96); MONO % 7.5 % (3.8-10.2); NEUT % 66.9 % (42.8-82.8); PLATELET COUNT 167 K/MM3 (134-434); RBC 3.28 M/mm3 (3.60-5.2); RDW 13.5 % (11.6-15.6); WHITE BLOOD COUNT 7.8 K/mm3 (4.0-10.0)
[2017-07-14] MEDS: FERROUS SO4 325 MG TABLET (FP) PO SCH ×3 (08:40→17:01)
[2017-07-14] MEDS ORDERED: PT OWN MED DRAWER 7, Y5N ONE (08:52)
[2017-07-14] MEDS: POTASSIUM CHLORIDE TABS 20 MEQ TABLET.ER (FP) PO SCH (09:42)
[2017-07-14] MEDS: PRENATAL VITAMINS W/ FOLIC ACID TABLET (FP) PO SCH (09:43)
[2017-07-14] MEDS: NICOTINE 21 MG/24 HOURS TOPICAL PATCH TD SCH (09:43)
[2017-07-14] MEDS: hydrOXYzine PAMOATE 50 MG CAPSULE (FP) PO PRN ×2 (09:43→21:26)
[2017-07-14] MEDS ORDERED: diazePAM 5 MG TABLET PO SCH (10:00)
--- NOTE | 2017-07-14 13:34 | PN ---
Physical Exam: SUBJECTIVE: Patient seen and examined. She states she is feeling better and wants to go home OBJECTIVE: Vital Signs Period Temp Pulse Resp BP Sys/Park Pulse Ox Last 24 Hr 97.8 F-98.9 F 80-93 18-20 103-113/43-60 99-99 GENERAL: The patient is awake, alert, and fully oriented, in no acute distress. HEAD: Normal with no signs of trauma.+ headache EYES: PERRL, extraocular movements intact, sclera anicteric, conjunctiva clear. No ptosis. ENT: Ears normal, nares patent, oropharynx clear without exudates, moist mucous membranes. NECK: Trachea midline, full range of motion, supple. LUNGS: Breath sounds equal, clear to auscultation bilaterally, no wheezes, no crackles, no accessory muscle use. HEART: Regular rate and rhythm, S1, S2 without murmur, rub or gallop. ABDOMEN: Soft, nontender, nondistended, normoactive bowel sounds, no guarding, no rebound, no hepatosplenomegaly, no masses. EXTREMITIES: 2+ pulses, warm, well-perfused, no edema. NEUROLOGICAL: Cranial nerves II through XII grossly intact. Normal speech, gait not observed. PSYCH: Normal mood, normal affect. SKIN: Warm, dry, normal turgor, no rashes or lesions noted, left arm with minor infiltrate from IV, monitor for now Laboratory Results - last 24 hr 07/11/17 07/13/17 07/14/17 09:30 12:45 03:00 WBC RBC Hgb Hct MCV MCH MCHC RDW Plt Count MPV Neutrophils % Lymphocytes % Monocytes % Eosinophils % Basophils % Sodium 141 Potassium 3.6 Chloride 104 Carbon Dioxide 29 Anion Gap 8 BUN 9 Creatinine 0.5 L Random Glucose 109 H Calcium 7.7 L Magnesium 1.6 L Opiates Screen Negative Methadone Screen Negative Barbiturate Screen Negative Phencyclidine Screen Negative Ur Amphetamines Screen Negative MDMA (Ecstasy) Screen Negative Benzodiazepines Screen Negative Cocaine Screen Negative U Marijuana (THC) Screen Negative Blood Type A POSITIVE Antibody Screen Negative Crossmatch See Detail 07/14/17 07/14/17 07:05 07:05 WBC 7.8 D RBC 3.28 L D Hgb 9.8 L D Hct 28.1 L D MCV 85.8 MCH 29.9 MCHC 34.8 RDW 13.5 Plt Count 167 MPV 8.0 Neutrophils % 66.9 Lymphocytes % 21.5 D Monocytes % 7.5 Eosinophils % 3.7 Basophils % 0.4 Sodium 143 Potassium 4.0 Chloride 106 Carbon Dioxide 28 Anion Gap 9 BUN 9 Creatinine 0.5 L Random Glucose 82 Calcium 8.2 L Magnesium Opiates Screen Methadone Screen Barbiturate Screen Phencyclidine Screen Ur Amphetamines Screen MDMA (Ecstasy) Screen Benzodiazepines Screen Cocaine Screen U Marijuana (THC) Screen Blood Type Antibody Screen Crossmatch Active Medications Generic Name Dose Route Start Last Admin Trade Name Freq PRN Reason Stop Dose Admin Acetaminophen 650 mg 07/13/17 11:47 07/14/17 06:05 Tylenol - PO 650 mg Q6H PRN Administration PAIN OR FEVER Buprenorphine/Naloxone 1 each 07/13/17 10:00 07/14/17 06:05 Suboxone 8mg/2mg Sl Film - SL 1 each TID VIJAYA Administration Clonazepam 1 mg 07/12/17 22:00 07/14/17 06:05 Klonopin - PO 1 mg TID VIJAYA Administration Docusate Sodium 300 mg 07/12/17 22:00 07/13/17 21:52 Colace - PO 300 mg HS VIJAYA Administration Ferrous Sulfate 325 mg 07/12/17 17:45 07/14/17 12:19 Feosol - PO 325 mg TIDCM VIJAYA Administration Hydroxyzine Pamoate 50 mg 07/12/17 18:07 07/14/17 09:43 Vistaril - PO 50 mg Q6H PRN Administration FOR ITCHING Pantoprazole Sodium 160 mg/ 290 mls @ 14.5 mls/hr 07/14/17 00:45 07/14/17 12: 19 Dextrose IVPB 14.5 mls/hr Q10H VIJAYA Administration 8 MG/HR Nicotine 21 mg 07/13/17 12:00 07/14/17 09:43 Nicoderm Patch - TD 21 mg DAILY VIJAYA Administration Potassium Chloride 20 meq 07/12/17 22:00 07/14/17 09:42 K-Dur - PO 20 meq BID VIJAYA Administration Multivit/Folic Acid/Iron 1 tab 07/13/17 10:00 07/14/17 09:43 Vitamins (Sjr) - PO 1 tab DAILY VIJAYA Administration Sucralfate 1 gm 07/13/17 22:00 07/14/17 12:19 Carafate Oral Suspension - PO 1 gm ACHS VIJAYA Administration Thiamine HCl 100 mg 07/12/17 22:00 07/13/17 21:53 Vitamin B1 - PO 100 mg HS VIJAYA Administration Trazodone HCl 50 mg 07/12/17 22:00 07/13/17 21:53 Desyrel - PO 50 mg HS VIJAYA Administration Zolpidem Tartrate 5 mg 07/12/17 18:06 Ambien - PO HS PRN INSOMNIA ASSESSMENT/PLAN: Ms. Zuluaga is a 27 yo female w/ pmh of elective gastric bypass, anemia, daily advil use, prescription pill abuse (currently on suboxone 03/10), anxiety, and heavy smoking who presented to ER with episode of heavy rectal bleeding and syncope; now s/p endoscopy for ulcer repair. Gastric Ulcer - S/P repair - Appreciate gastroenterology consulted. -last BM 2 days ago requesting switching colace to senna per her home regimen Anemia - stable H/H today -feeling tired -iron supps Substance abuse - Suboxone - per PCP (Dr. Amador - mobile: [phone]). 12mg BID. PCP requests fax of chart at discharge. - Detox consulted appreciated - Psych consulted appreciated and will put for OP referral when discharged Nicotine abuse - Patient refused nicotine patch FEN - Oral fluids as tolerated, avoid carbonation, bariatric diet only - Replete electrolytes pRN - Tolerating Regular diet for past 24 hour Skin -L AC mild infiltate -keep arm straight, -warm pack -monitor PPX - Pantoprazole - SCDs Dispo: Stable on m/s floor, plan for discharge tomorrow, d/w GI first Visit type - Emergency Visit Emergency Visit: Yes ED Registration Date: 07/11/17 Care time: The patient presented to the Emergency Department on the above date and was hospitalized for further evaluation of their emergent condition. - New Patient This patient is new to me today: Yes Date on this admission: 07/14/17 - Critical Care Critical Care patient: No - Discharge Referral Referred to [facility] Med P.C.: No
[2017-07-14] MEDS ORDERED: ONDANSETRON 4 MG/2 ML VIAL IVPUSH PRN (18:17)
[2017-07-14] MEDS: SENNOSIDES 8.6MG TABLET (FP) PO SCH (21:26)
[2017-07-14] MEDS: THIAMINE HCL 100 MG TABLET (FP) PO SCH (21:27)
[2017-07-14] MEDS: traZODone HCL 50 MG TABLET (FP) PO SCH (21:27)
[2017-07-15] MEDS: SUCRALFATE 1 GM/10 ML UNIT DOSE CUPS PO SCH ×3 (06:07→18:29)
[2017-07-15] MEDS: BUPRENORPHINE/NALOXONE 8 MG/2 MG FILM PACKET SL SCH ×2 (06:07→14:28)
[2017-07-15] MEDS: ACETAMINOPHEN 325 MG TABLET (FP) PO PRN ×2 (06:07→14:28)
[2017-07-15] MEDS: clonazePAM 0.5 MG TABLET PO SCH ×2 (06:07→13:39)
[2017-07-15] MEDS: PANTOPRAZOLE SODIUM 160 MG in DEXTROSE 5%-WATER - 290 ML IVPB SCH (06:08)
[2017-07-15] MEDS: FERROUS SO4 325 MG TABLET (FP) PO SCH ×2 (08:55→12:17)
[2017-07-15] MEDS: SENNOSIDES 8.6MG TABLET (FP) PO SCH (09:00)
[2017-07-15] MEDS: PRENATAL VITAMINS W/ FOLIC ACID TABLET (FP) PO SCH (09:01)
[2017-07-15] MEDS: NICOTINE 21 MG/24 HOURS TOPICAL PATCH TD SCH (09:01)
[2017-07-15 09:14] LABS: BASO % 0.4 % (0-2.0); EOS % 3.6 % (0-4.5); HEMATOCRIT 29.9 % (32.4-45.2); HEMOGLOBIN 10.1 GM/dL (10.7-15.3); LYMPH % 22.2 % (8-40); MCH 29.7 pg (25.7-33.7); MCHC 33.8 g/dl (32.0-36.0); MEAN CELL VOLUME 87.7 fl (80-96); MEAN PLT VOLUME 8.3 fl (7.5-11.1); MONO % 8.3 % (3.8-10.2); NEUT % 65.5 % (42.8-82.8); PLATELET COUNT 189 K/MM3 (134-434); RBC 3.41 M/mm3 (3.60-5.2); RDW 14.1 % (11.6-15.6); WHITE BLOOD COUNT 7.4 K/mm3 (4.0-10.0)
[2017-07-15] MEDS ORDERED: PANTOPRAZOLE SODIUM 80 MG in SODIUM CHLORIDE 100 ML IVPB SCH (09:45)
--- NOTE | 2017-07-15 11:50 | PN ---
Progress Note, Physician History of Present Illness: No events. No stigmata of ongoing GI bleeding - Current Medication List Current Medications: Active Medications Acetaminophen (Tylenol -) 650 mg PO Q6H PRN PRN Reason: PAIN OR FEVER Last Admin: 07/15/17 06:07 Dose: 650 mg Buprenorphine/Naloxone (Suboxone 8mg/2mg Sl Film -) 1 each SL TID [facility] Last Admin: 07/15/17 06:07 Dose: 1 each Clonazepam (Klonopin -) 1 mg PO TID VIJAYA Last Admin: 07/15/17 06:07 Dose: 1 mg Ferrous Sulfate (Feosol -) 325 mg PO TIDCM [facility] Last Admin: 07/15/17 08:55 Dose: 325 mg Hydroxyzine Pamoate (Vistaril -) 50 mg PO Q6H PRN PRN Reason: FOR ITCHING Last Admin: 07/14/17 21:26 Dose: 50 mg Pantoprazole Sodium 80 mg/ (Sodium Chloride) 100 mls @ 10 mls/hr IVPB Q10H VIJAYA PRN Reason: 8 MG/HR Last Admin: 07/15/17 10:20 Dose: 10 mls/hr Nicotine (Nicoderm Patch -) 21 mg TD DAILY [facility] Last Admin: 07/15/17 09:01 Dose: 21 mg Ondansetron HCl (Zofran Injection) 4 mg IVPUSH Q4H PRN PRN Reason: NAUSEA AND/OR VOMITING Last Admin: 07/14/17 18:40 Dose: 4 mg Multivit/Folic Acid/Iron ( Vitamins (Sjr) -) 1 tab PO DAILY [facility] Last Admin: 07/15/17 09:01 Dose: 1 tab Senna (Senna -) 2 tab PO BID VIJAYA Last Admin: 07/15/17 09:00 Dose: 2 tab Sucralfate (Carafate Oral Suspension -) 1 gm PO ACHS [facility] Last Admin: 07/15/17 10:27 Dose: 1 gm Thiamine HCl (Vitamin B1 -) 100 mg PO HS [facility] Last Admin: 07/14/17 21:27 Dose: 100 mg Trazodone HCl (Desyrel -) 50 mg PO HS [facility] Last Admin: 07/14/17 21:27 Dose: 50 mg Zolpidem Tartrate (Ambien -) 5 mg PO HS PRN PRN Reason: INSOMNIA - Objective Vital Signs: Vital Signs Temperature 97.6 F 07/15/17 06:21 Pulse Rate 81 07/15/17 06:21 Respiratory Rate 18 07/15/17 06:21 Blood Pressure 119/57 07/15/17 06:21 O2 Sat by Pulse Oximetry (%) 99 07/14/17 21:00 Constitutional: Yes: Well Nourished, No Distress, Calm Eyes: Yes: Conjunctiva Clear HENT: Yes: Atraumatic Neck: Yes: Supple Gastrointestinal: No: Melena, Rectal Bleeding, Tenderness, Vomiting Labs: CBC, BMP 07/15/17 06:45 07/14/17 07:05 INR, PTT INR 1.15 (0.82-1.09) H 07/11/17 09:30 Fibrinogen 166.0 mg/dL (238-498) L 07/11/17 09:32 Laboratory Last Values WBC 7.4 K/mm3 (4.0-10.0) 07/15/17 06:45 RBC 3.41 M/mm3 (3.60-5.2) L 07/15/17 06:45 Hgb 10.1 GM/dL (10.7-15.3) L 07/15/17 06:45 Hct 29.9 % (32.4-45.2) L 07/15/17 06:45 MCV 87.7 fl (80-96) 07/15/17 06:45 MCH 29.7 pg (25.7-33.7) 07/15/17 06:45 MCHC 33.8 g/dl (32.0-36.0) 07/15/17 06:45 RDW 14.1 % (11.6-15.6) 07/15/17 06:45 Plt Count 189 K/MM3 (134-434) 07/15/17 06:45 MPV 8.3 fl (7.5-11.1) 07/15/17 06:45 Neutrophils % 65.5 % (42.8-82.8) 07/15/17 06:45 Lymphocytes % 22.2 % (8-40) 07/15/17 06:45 Monocytes % 8.3 % (3.8-10.2) 07/15/17 06:45 Eosinophils % 3.6 % (0-4.5) 07/15/17 06:45 Basophils % 0.4 % (0-2.0) 07/15/17 06:45 Haptoglobin 92 mg/dL (34-200) 07/11/17 17:00 PT with INR 13.00 SEC (9.98-11.88) H 07/11/17 09:30 INR 1.15 (0.82-1.09) H 07/11/17 09:30 PTT (Actin FS) 27.1 SECONDS (26.9-34.4) 07/11/17 20:45 Fibrinogen 166.0 mg/dL (238-498) L 07/11/17 09:32 D-Dimer 260 ng/ml (0-500) 07/11/17 09:32 Sodium 143 mmol/L (136-145) 07/14/17 07:05 Potassium 4.0 mmol/L (3.5-5.1) 07/14/17 07:05 Chloride 106 mmol/L (98-107) 07/14/17 07:05 Carbon Dioxide 28 mmol/L (21-32) 07/14/17 07:05 Anion Gap 9 (8-16) 07/14/17 07:05 BUN 9 mg/dL (7-18) 07/14/17 07:05 Creatinine 0.5 mg/dL (0.55-1.02) L 07/14/17 07:05 Creat Clearance w eGFR > 60 (>60) 07/12/17 05:17 Random Glucose 82 mg/dL (74-106) 07/14/17 07:05 Specific [place] Cancelled 07/11/17 09:40 Lactic Acid 1.1 mmol/L (0.0-2.0) 07/11/17 12:16 Calcium 8.2 mg/dL (8.5-10.1) L 07/14/17 07:05 Magnesium 1.6 mg/dL (1.8-2.4) L 07/13/17 12:45 Ferritin 145.094 ng/ml (6.9-282.5) 07/13/17 07:10 Total Bilirubin 0.4 mg/dL (0.2-1.0) D 07/12/17 05:17 AST 15 U/L (15-37) 07/12/17 05:17 ALT 21 U/L (12-78) 07/12/17 05:17 Alkaline Phosphatase 36 U/L (45-117) L 07/12/17 05:17 LD Total 123 U/L (84-246) 07/11/17 09:32 Creatine Kinase 60 IU/L (26-192) 07/11/17 09:30 Troponin I < 0.02 ng/ml (0.00-0.05) 07/11/17 09:30 Total Protein 4.4 g/dl (6.4-8.2) L 07/12/17 05:17 Albumin 2.4 g/dl (3.4-5.0) L 07/12/17 05:17 Beta HCG, Quant < 1.0 mIU/ml 07/11/17 09:32 Serum , Qual Negative 07/11/17 11:00 Urine Color Yellow 07/11/17 09:40 Urine Appearance Clear 07/11/17 09:40 Urine pH 6.0 (5.0-8.0) 07/11/17 09:40 Ur Specific [place] 1.027 (1.001-1.035) 07/11/17 09:40 Urine Protein Negative (NEGATIVE) 07/11/17 09:40 Urine Glucose (UA) Negative (NEGATIVE) 07/11/17 09:40 Urine Ketones Negative (NEGATIVE) 07/11/17 09:40 Urine Blood Negative (NEGATIVE) 07/11/17 09:40 Urine Nitrite Negative (NEGATIVE) 07/11/17 09:40 Urine Bilirubin Negative (<2.0 mg/dL) 07/11/17 09:40 Urine Urobilinogen Negative mg/dL (0.2-1.0) 07/11/17 09:40 Ur Leukocyte Esterase Negative (NEGATIVE) 07/11/17 09:40 Stool Occult Blood Positive (NEGATIVE) 07/11/17 09:40 Urine Butalbital Cancelled 07/11/17 09:40 Ur Butalbital Confirm Cancelled 07/11/17 09:40 Salicylates < 1.700 mg/dL 07/11/17 09:30 Opiates Screen Negative ng/ml (THNXUM=822) 07/14/17 03:00 Urine Opiates Screen Cancelled 07/11/17 09:40 Meperidine Cancelled 07/11/17 09:40 Urine Normeperidine Cancelled 07/11/17 09:40 U Normeperidine GC/MS Cancelled 07/11/17 09:40 Urine Codeine Cancelled 07/11/17 09:40 U Codeine Confrm GC/MS Cancelled 07/11/17 09:40 Urine Morphine Cancelled 07/11/17 09:40 Morphine Confirm GC/MS Cancelled 07/11/17 09:40 Urine Hydrocodone Cancelled 07/11/17 09:40 Ur Hydrocodone (GC/MS) Cancelled 07/11/17 09:40 Urine Oxycodone Cancelled 07/11/17 09:40 Ur Oxycodone GC/MS Cancelled 07/11/17 09:40 Oxymorphone Confirm Cancelled 07/11/17 09:40 Urine Oxymorphone Cancelled 07/11/17 09:40 U Oxycodone/Oxymorphon Cancelled 07/11/17 09:40 Methadone Screen Negative ng/ml (RMBDCV=700) 07/14/17 03:00 Ur Methadone Cancelled 07/11/17 09:40 Ur Methadone Confirm Cancelled 07/11/17 09:40 Ur Hydromorphone Cancelled 07/11/17 09:40 Ur Hydromorphone (GC/MS) Cancelled 07/11/17 09:40 Urine Propoxyphene Cancelled 07/11/17 09:40 U Propoxyphene/M GC/MS Cancelled 07/11/17 09:40 Acetaminophen 4.775 ug/mL 07/11/17 09:30 Barbiturate Screen Negative ng/ml (USEXLE=720) 07/14/17 03:00 Ur Barbiturates Screen Cancelled 07/11/17 09:40 Urine Barbiturates Cancelled 07/11/17 09:40 Phencyclidine Screen Negative ng/ml (CUTOFF=25) 07/14/17 03:00 Ur Phencyclidine (PCP) Cancelled 07/11/17 09:40 Ur PCP Confirm (GC/MS) Cancelled 07/11/17 09:40 Amphetamines Cancelled 07/11/17 09:40 Amphetamines Grp GC/MS Cancelled 07/11/17 09:40 Ur Amphetamines Screen Negative ng/ml (YLNPQD=263) 07/14/17 03:00 Urine Amphetamine Cancelled 07/11/17 09:40 Ur Amphetamines, Quant Cancelled 07/11/17 09:40 Methamphetamine Cancelled 07/11/17 09:40 Methamphetamine GC/MS Cancelled 07/11/17 09:40 MDMA (Ecstasy) Screen Negative ng/ml (CUCLZE=832) 07/14/17 03:00 Urine Amobarbital Cancelled 07/11/17 09:40 Ur Amobarbital GC/MS Cancelled 07/11/17 09:40 Urine Pentobarbital Cancelled 07/11/17 09:40 U Pentobarbital GC/MS Cancelled 07/11/17 09:40 Urine Phenobarbital Cancelled 07/11/17 09:40 U Phenobarbital GC/MS Cancelled 07/11/17 09:40 Urine Secobarbital Cancelled 07/11/17 09:40 U Secobarbital GC/MS Cancelled 07/11/17 09:40 Urine Alprazolam Cancelled 07/11/17 09:40 U OH-Alprazolam GC/MS Cancelled 07/11/17 09:40 Benzodiazepines Screen Negative ng/ml (TIEUAZ=726) 07/14/17 03:00 U Benzodiazepines Scrn Cancelled 07/11/17 09:40 Urine Clonazepam Cancelled 07/11/17 09:40 U 7-Amino Clonazep GC/MS Cancelled 07/11/17 09:40 Ur Nordiazepam Cancelled 07/11/17 09:40 Ur Nordiazepam GC/MS Cancelled 07/11/17 09:40 Flurazepam Cancelled 07/11/17 09:40 Flurazepam Confirm Cancelled 07/11/17 09:40 Lorazepam Cancelled 07/11/17 09:40 Urine Lorazepam Cancelled 07/11/17 09:40 Ur Oxazepam Cancelled 07/11/17 09:40 U Oxazepam Confm GC/MS Cancelled 07/11/17 09:40 Urine Temazepam Cancelled 07/11/17 09:40 Ur Temazepam (GC/MS) Cancelled 07/11/17 09:40 Urine Triazolam Cancelled 07/11/17 09:40 Ur Triazolam (GC/MS) Cancelled 07/11/17 09:40 Meperidine (GC/MS) Cancelled 07/11/17 09:40 Ur Meperidine Cancelled 07/11/17 09:40 Cocaine Screen Negative ng/ml (EMCYYE=653) 07/14/17 03:00 Cocaine & Metabolite Cancelled 07/11/17 09:40 Urine Cocaine Cancelled 07/11/17 09:40 Benzoylecgonine Cancelled 07/11/17 09:40 Cannabinoids Cancelled 07/11/17 09:40 Urine Cannabinoids Cancelled 07/11/17 09:40 U Marijuana (THC) Screen Negative ng/ml (CUTOFF=50) 07/14/17 03:00 Urine Marijuana (THC) Cancelled 07/11/17 09:40 Urine Ethyl Alcohol Cancelled 07/11/17 09:40 Blood Type A POSITIVE 07/11/17 09:30 Antibody Screen Negative 07/11/17 09:30 Crossmatch See Detail 07/11/17 09:30 Problem List - Problems (1) GI bleeding Code(s): K92.2 - GASTROINTESTINAL HEMORRHAGE, UNSPECIFIED (2) History of gastric bypass Code(s): Z98.84 - BARIATRIC SURGERY STATUS (3) Normocytic normochromic anemia Code(s): D64.9 - ANEMIA, UNSPECIFIED Assessment/Plan Bleeding, marginal ulcer. s/p epi injection, clipping and cautery. No overnight events. Hgb @ 8 g/dl PPI po bid carafate Advance diet Follow biopsies in officein 1 week Avoid NSAIDs going forward.
[2017-07-15 15:57] VITALS: BP 124/54; PULSE 95; TEMP 97.9
--- NOTE | 2017-07-15 16:40 | PATH ---
Surgical Pathology Report Patient Name: DUARTE WESLEY Med. Rec. #: [id number] /Age/Gender: 1990 (Age: 27) / F Account: [id number] Location: [address] [place] [address]/[facility] Taken: 07/11/2017 Received: 07/12/2017 Reported: 07/15/2017 Physicians: Gurinder Ambriz M.D. Specimen(s) Received BX GASTRIC BODY Clinical History Upper GI bleed Postoperative diagnosis: Deep marginal ulcer with visible vessel Final Diagnosis GASTRIC BODY, BIOPSY: GASTRIC BODY MUCOSA WITH MILD CHRONIC GASTRITIS AND FOCAL ULCERATION. IMMUNOHISTOCHEMICAL STAIN FOR H. PYLORI IS NEGATIVE. Electronically Signed Mala Betancur M.D. Gross Description Received in formalin, labeled "biopsy gastric body" are 2 gibbs, irregular portions of soft tissue measuring 0.3 and 0.4 cm. in greatest dimension. The specimens are submitted in toto in one cassette. 07/12/2017 [facility]07/12/2017
--- NOTE | 2017-07-15 16:59 | DS ---
Physical Examination Vital Signs: Vital Signs Temperature 97.9 F 07/15/17 14:56 Pulse Rate 95 H 07/15/17 14:56 Respiratory Rate 18 07/15/17 14:56 Blood Pressure 124/54 07/15/17 14:56 O2 Sat by Pulse Oximetry (%) 99 07/15/17 09:00 Constitutional: Yes: No Distress Eyes: Yes: WNL HENT: Yes: WNL Neck: Yes: WNL Cardiovascular: Yes: WNL Respiratory: Yes: WNL Gastrointestinal: Yes: WNL Renal/: Yes: WNL Musculoskeletal: Yes: WNL Extremities: Yes: WNL Edema: No Peripheral Pulses WNL: Yes Integumentary: Yes: WNL Wound/Incision: Yes: Clean/Dry Neurological: Yes: WNL ...Motor Strength: WNL Psychiatric: Yes: WNL Labs: CBC, BMP 07/15/17 06:45 07/14/17 07:05 Discharge Summary Reason For Visit: UPPER GASTROINTESTINAL HEMORRHAGE Current Active Problems Encounter for monitoring Suboxone maintenance therapy (Acute) GI bleeding (Acute) History of gastric bypass (Acute) Hypokalemia (Acute) Insomnia (Acute) Normocytic normochromic anemia (Acute) Opioid dependence on agonist therapy (Acute) Sedative, hypnotic or anxiolytic dependence with withdrawal, uncomplicated ( Acute) Procedures: Principal: CT ABD Hospital Course: EGD GI WORKUP, TREATED AND TRANSFUSED PRBC WILL NEED CBC IN 1-2 DAYS Condition: Stable - Instructions Diet, Activity, Other Instructions: CBC IN 1-2 DAYS AT YOUR DOCTORS OFFICE Referrals: Mala Samuels [Primary Care Provider] - Disposition: HOME - Home Medications Comprehensive Discharge Medication List: Ambulatory Orders Ascorbate Calcium [Vitamin C] 500 mg PO BID 07/11/17 Buprenorphine HCl/Naloxone HCl [Suboxone 12 mg-3 mg Sl Film] 1 each SL BID 07/11 Calcium Carbonate [Calcium] 500 mg PO BID 07/11/17 Cholecalciferol (Vitamin D3) [Vitamin D3] 1,000 unit PO DAILY 07/11/17 Clonazepam [Klonopin] 1 mg PO TID 07/11/17 Cyanocobalamin [Vitamin B12 -] 100 mcg PO DAILY 07/11/17 Ferrous Sulfate 325 mg PO TID 07/11/17 Nicotine [Nicotine Patch 21 mg/24 hr] 1 each TD PRN 07/11/17 Pnv No.95/Ferrous Fum/Folic AC [ Vitamin Tablet] 1 each PO DAILY Ranitidine [Zantac -] 150 mg PO BID 07/11/17 Sennosides [Senna] 8.6 mg PO TID 07/11/17 Thiamine HCl 0 mg PO DAILY 07/11/17 Trazodone HCl 50 mg PO HS 07/11/17 Buprenorphine/Naloxone [Suboxone 8Mg/2Mg Sl Film -] 1 each SL TID film MDD 3 Cetirizine HCl [All Day Allergy] 10 mg PO DAILY #30 capsule 07/15/17 Docusate Sodium [Colace -] 300 mg PO HS #30 capsule 07/15/17 Ferrous Sulfate [Feosol] 325 mg PO TIDCM #90 ud 07/15/17 Nicotine Patch [Nicoderm Patch -] 21 mg TD DAILY patch 07/15/17 Omeprazole 20 mg PO BID #60 tablet. 07/15/17 Vitamins (Sjr) - 1 tab PO DAILY tablet 07/15/17 Sennosides [Senna -] 2 tab PO BID #120 tablet 07/15/17 Sucralfate Oral Suspension [Carafate Oral Suspension -] 1 gm PO ACHS #14 ml 12/24 Thiamine HCl [Vitamin B1 -] 100 mg PO HS #30 tablet 07/15/17 Zolpidem Tartrate [Ambien] 5 mg PO HS PRN tablet MDD 1 07/15/17 clonazePAM [Klonopin -] 1 mg PO TID tablet MDD 3 07/15/17 hydrOXYzine PAMOATE [Vistaril -] 50 mg PO Q6H PRN #120 capsule 07/15/17 traZODone HCL [Desyrel -] 50 mg PO HS #30 tablet 07/15/17
[2017-07-16] MEDS ORDERED: diazePAM 5 MG TABLET PO SCH (10:00)
[2017-07-23 14:31] LABS: SERUM IRON SATURATION 37; TOTAL IRON BINDING CAPACITY 133; UIBC 84
== END 2017-07-15 17:24 | disposition home or self-care (01) | DRG 241 ==
LOC: JER 08:59 → JERBED 12:17 → JICU 13:40 → J5S 07-12 17:10
PROVIDERS: ADMIT Internal Medicine; ATTEND Family Medicine
PROC: 0DD68ZX Extraction of Stomach, Via Natural or Artificial Opening Endoscopic, Diagnostic (ICD-10-PCS; 2017-07-11)
PROC: 3E0G8GC Introduction of Other Therapeutic Substance into Upper GI, Via Natural or Artificial Opening Endoscopic (ICD-10-PCS; 2017-07-11)
PROC: 30233H1 Transfusion of Nonautologous Whole Blood into Peripheral Vein, Percutaneous Approach (ICD-10-PCS; 2017-07-11)
PROC: 0W3P8ZZ Control Bleeding in Gastrointestinal Tract, Via Natural or Artificial Opening Endoscopic (ICD-10-PCS; principal; 2017-07-11 12:30)
DX: K28.0 Acute gastrojejunal ulcer with hemorrhage (principal); I95.9 Hypotension, unspecified; E87.2 Acidosis; D69.6 Thrombocytopenia, unspecified; F11.20 Opioid dependence, uncomplicated; D62 Acute posthemorrhagic anemia; Z98.84 Bariatric surgery status; F41.9 Anxiety disorder, unspecified; F17.210 Nicotine dependence, cigarettes, uncomplicated; R21 Rash and other nonspecific skin eruption; F32.9 Major depressive disorder, single episode, unspecified; F90.9 Attention-deficit hyperactivity disorder, unspecified type; E87.6 Hypokalemia; G47.00 Insomnia, unspecified; F13.230 Sedative, hypnotic or anxiolytic dependence with withdrawal, uncomplicated; R51 Headache
CPT/HCPCS: 36415; 36430; 36511; 80048; 80053; 80307; 81003; 82272; 82550; 82728; 83010; 83540; 83550; 83605; 83615; 83735; 84484; 84702; 84703; 85025; 85027; 85379; 85384; 85610; 85730; 86850; 86900; 86901; 86922; 87040; 87086; 87804; 88305-TC; 93005; 93010; 99284-25; J0131; J7030; P9038; P9058

== ENCOUNTER 2018-06-11 13:21 | Emergency (ER) | payer OTHER ==
[2018-06-11 13:32] VITALS: BP 133/78; PULSE 105; TEMP 98; BMI 30.7
[2018-06-11] MEDS ORDERED: ONDANSETRON 4 MG/2 ML VIAL IVPUSH ONE (14:11)
[2018-06-11] MEDS ORDERED: SODIUM CHLORIDE 1,000 ML IV STA (14:11)
[2018-06-11] MEDS ORDERED: PANTOPRAZOLE SODIUM 40 MG in SODIUM CHLORIDE 100 ML IVPB ONE (14:25)
[2018-06-11] MEDS ORDERED: PANTOPRAZOLE SODIUM 40 MG/100 ML BAG IVPB ONE (14:34)
[2018-06-11] MEDS ORDERED: ONDANSETRON 4 MG/2 ML VIAL ONE (14:34)
--- NOTE | 2018-06-11 14:35 | PDOC ---
History of Present Illness - General Chief Complaint: Nausea/Vomiting Stated Complaint: 10 WK PREG // ULCER Time Seen by Provider: 06/11/18 14:09 History Source: Patient Exam Limitations: No Limitations - History of Present Illness Travel History: No Initial Comments: 06/11/18 14:31 28-year-old female presents to ED with complaints of right upper quadrant sharp pain radiating to her right back for the past 5 days associated nausea vomiting and diarrhea. Patient denies fever, chills chest pain, difficulty breathing, vaginal discharge or vaginal bleeding patient states is currently 10 weeks and is on prenatals along with other medication, Quality: reports: mild, burning Abdominal Pain Onset Location: reports: epigastric Pain Radiation: reports: back (vaughn) Activities at Onset: reports: none Aggravating Factors: improves with: None Alleviating Factors: improves with: None Past History - Travel Traveled outside of the country in the last 30 days: No Close contact w/someone who was outside of country & ill: No - Past Medical History Allergies/Adverse Reactions: Allergies Allergy/AdvReac Type Severity Reaction Status Date / Time morphine Allergy Severe Swelling Verified 10/04/17 21:07 shellfish derived Allergy Severe Swelling Verified 10/04/17 21:07 enoxaparin [From Lovenox] Allergy Verified 10/04/17 21:07 cats Allergy Uncoded 10/04/17 21:07 Home Medications: Ambulatory Orders Ascorbic Acid [Vitamin C -] 500 mg PO DAILY 10/04/17 Buprenorphine HCl/Naloxone HCl [Suboxone 12 mg-3 mg Sl Film] 1 each SL BID 10/04 Calcium (Oyster Shell) [Os-Derrek 500Mg -] 500 mg PO BID 10/04/17 Cholecalciferol (Vitamin D3) [Vitamin D3 -] 2,000 unit PO DAILY 10/04/17 Clonazepam [Klonopin] 1 mg PO TID 10/04/17 Cyanocobalamin [Vitamin B12 -] 1,000 mcg PO DAILY 10/04/17 Ferrous Sulfate [Feosol] 325 mg PO DAILY 10/04/17 Lisdexamfetamine Dimesylate [Vyvanse] 60 mg PO DAILY 10/04/17 Omeprazole 40 mg PO BID 10/04/17 Kamsuzwa83/Iron/Folic Acid/Dha [Prena1 Yen Softgel] 1 each PO DAILY 10/04/17 Ranitidine HCl [Zantac] 150 mg PO BID 10/04/17 Sucralfate Oral Suspension [Carafate *Oral Susp*] 1 gm PO QID 10/04/17 traZODone HCL [Desyrel -] 50 mg PO HS 10/04/17 Cephalexin Monohydrate [Keflex -] 500 mg PO Q8H #30 capsule 10/05/17 Anemia: Yes Asthma: No Cancer: No Cardiac Disorders: No COPD: No Diabetes: No HTN: No Psychiatric Problems: Yes (ANXIETY, depression) Seizures: No Thyroid Disease: No - Surgical History Cholecystectomy: Yes GI Surgery: Yes ([facility]) - Reproductive History (#): 1 Para: 0 Cervical CA: No Dysfunctional Uterine Bleeding: No Ectopic : No Endometrial CA: No Endometriosis: No Ovarian CA: No PID: No Polycystic Ovaries: No Therapeutic (s) & number: No (first ) Tubal Ligation: No Spontaneous : 0 Uterine Fibroids: No Oophorectomy: No - Suicide/Smoking/Psychosocial Hx Smoking History: Current every day smoker Have you smoked in the past 12 months: No Number of Cigarettes Smoked Daily: 5 Information on smoking cessation initiated: No 'Breaking Loose' booklet given: 07/11/17 Hx Alcohol Use: No Drug/Substance Use Hx: No Hx Substance Use Treatment: No (mat suboxone) Patient Lives Alone: No Lives with/in: spouse/SO Abd/GI Specific PMHX - Complaint Specific PMHX Colitis: No Diverticulitis: No Gall Bladder Disease: No GERD: No Hepatitis: No Irritable Bowel Synd (IBS): No Pancreatitis: No GI Ulcer Disease: No Review of Systems - Review of Systems Able to Perform ROS?: Yes Constitutional: Yes: Weakness HEENTM: No: Symptoms Reported Respiratory: No: Symptoms reported Cardiac (ROS): No: Symptoms Reported ABD/GI: Yes: Diarrhea, Nausea, Poor Appetite, Poor Fluid Intake, Vomiting, Abdominal cramping. No: Blood Streaked Bowels, Rectal Bleeding : No: Symptoms Reported Musculoskeletal: No: Symptoms Reported Integumentary: No: Symptoms Reported Neurological: No: Symptoms reported Endocrine: No: Symptoms Reported Hematologic/Lymphatic: Yes: See HPI *Physical Exam - Vital Signs Last Vital Signs Temp Pulse Resp BP Pulse Ox 98 F 105 H 20 133/78 100 06/11/18 13:28 06/11/18 13:28 06/11/18 13:28 06/11/18 13:28 06/11/18 13:28 - Physical Exam General Appearance: Yes: Nourished, Appropriately Dressed. No: Apparent Distress HEENT: positive: EOMI, ARNALDO, TMs Normal, Pharynx Normal. negative: Pale Conjunctivae Neck: positive: Supple Respiratory/Chest: positive: Lungs Clear, Normal Breath Sounds. negative: Respiratory Distress, Accessory Muscle Use Cardiovascular: positive: Regular Rhythm, Tachycardia. negative: Murmur Gastrointestinal/Abdominal: positive: Normal Bowel Sounds, Soft, Tenderness ( ruq rt flank). negative: Distended, Guarding, Rebound Musculoskeletal: negative: CVA Tenderness Integumentary: positive: Normal Color, Warm, Moist Neurologic: positive: Motor Strength 5/5 (ambulatory) Moderate Sedation - Procedure Monitoring Vital Signs: Procedure Monitoring Vital Signs Temperature 98 F 06/11/18 13:28 Pulse Rate 105 H 06/11/18 13:28 Respiratory Rate 20 06/11/18 13:28 Blood Pressure 133/78 06/11/18 13:28 O2 Sat by Pulse Oximetry (%) 100 06/11/18 13:28 ED Treatment Course - LABORATORY CBC & Chemistry Diagram: 06/11/18 14:29 06/11/18 14:29 Medical Decision Making - Medical Decision Making 06/11/18 14:25 CC: Nausea and vomiting along right upper and right flank pain for the past 5 days. Patient currently 10 weeks Exam: Patient with upper right flank pain no CVA tenderness on exam Plan: urine urine culture IV fluids Zofran, Protonix and labs 06/11/18 16:05 Laboratory Tests 06/11/18 06/11/18 06/11/18 14:29 14:29 14:29 WBC 6.2 Hgb 13.3 Hct 38.4 Neutrophils % 69.5 D Sodium 139 Potassium 4.2 Chloride 107 Carbon Dioxide 25 Anion Gap 7 L BUN 7 Creatinine 0.5 L Random Glucose 79 Calcium 8.8 Magnesium 1.7 L Total Bilirubin 0.2 AST 19 ALT 25 Alkaline Phosphatase 49 Total Protein 6.9 Albumin 3.6 Lipase 82 Urine Blood 1+ H Urine Nitrite Negative Ur Leukocyte Esterase Negative Urine WBC (Auto) 2 Urine RBC (Auto) 9 Patient states feeling better after receiving medication tolerated to diane crackers and apple juice. Patient be discharged home and Zofran with strict instructions to watch out for increased flank pain, increasing vomiting and blood in her urine. If noted she is instructed to return to the ED. *DC/Admit/Observation/Transfer Diagnosis at time of Disposition: Nausea vomiting and diarrhea - Discharge Dispostion Disposition: HOME Condition at time of disposition: Improved - Referrals Referrals: Mala Samuels [Primary Care Provider] - - Patient Instructions Printed Discharge Instructions: DI for Nausea -- Adult, Nausea of ( Alternative Therapy) Additional Instructions: Please eat small frequent meals and take Zofran as needed for nausea. If you develop worsening flank pain, increased nausea or bloody urine please return to the nearest emergency room. - Post Discharge Activity
--- NOTE | 2018-06-11 14:55 | PDOC ---
*Physical Exam - Vital Signs Last Vital Signs Temp Pulse Resp BP Pulse Ox 98 F 105 H 20 133/78 100 06/11/18 13:28 06/11/18 13:28 06/11/18 13:28 06/11/18 13:28 06/11/18 13:28 ED Treatment Course - LABORATORY CBC & Chemistry Diagram: 06/11/18 14:29 06/11/18 14:29 - Medications Given in the ED: ED Medications Discontinued Medications Generic Name Dose Route Start Last Admin Trade Name Freq PRN Reason Stop Dose Admin Pantoprazole Sodium 40 mg/ 100 mls @ 200 mls/hr 06/11/18 14:25 06/11/18 14:41 Sodium Chloride IVPB 06/11/18 14:54 200 mls/hr ONCE ONE Administration Ondansetron HCl 4 mg 06/11/18 14:11 06/11/18 14:41 Zofran Injection IVPUSH 06/11/18 14:12 4 mg ONCE ONE Administration Medical Decision Making - Medical Decision Making 06/11/18 14:55 Agree with plan per JESSICA Wright *DC/Admit/Observation/Transfer Diagnosis at time of Disposition: Nausea vomiting and diarrhea - Discharge Dispostion Disposition: HOME Condition at time of disposition: Improved - Prescriptions Prescriptions: Ondansetron HCl [Zofran] 4 mg PO TID PRN #12 tablet PRN Reason: Nausea And/Or Vomiting - Referrals Referrals: Mala Samuels [Primary Care Provider] - - Patient Instructions Printed Discharge Instructions: Nausea of (Alternative Therapy), DI for Nausea -- Adult Additional Instructions: Please eat small frequent meals and take Zofran as needed for nausea. If you develop worsening flank pain, increased nausea or bloody urine please return to the nearest emergency room. - Post Discharge Activity
[2018-06-11 15:17] LABS: URINE APPEARANCE CLEAR; URINE BILIRUBIN NEGATIVE (<2.0 mg/dL); URINE COLOR YELLOW; URINE GLUCOSE (UA) NEGATIVE (NEGATIVE); URINE KETONE NEGATIVE (NEGATIVE); URINE LEUK ESTERASE NEGATIVE (NEGATIVE); URINE NITRITE NEGATIVE (NEGATIVE); URINE PROTEIN NEGATIVE (NEGATIVE); URINE UROBILINOGEN NEGATIVE mg/dL (0.2-1.0)
[2018-06-11 15:18] LABS: ALBUMIN 3.6 g/dl (3.4-5.0); ALK PHOS 49 U/L (45-117); ANION GAP 7 MMOL/L (8-16); BILIRUBIN,TOTAL 0.2 mg/dL (0.2-1); BLOOD UREA NITROGEN 7 mg/dL (7-18); CALCIUM 8.8 mg/dL (8.5-10.1); CHLORIDE 107 mmol/L (98-107); CO2 25 mmol/L (21-32); CREATININE 0.5 mg/dL (0.55-1.3); GLUCOSE,RANDOM 79 mg/dL (74-106); LIPASE 82 U/L (73-393); MAGNESIUM 1.7 mg/dL (1.8-2.4); POTASSIUM 4.2 mmol/L (3.5-5.1); SGOT/AST 19 U/L (15-37); SGPT/ALT 25 U/L (13-61); SODIUM 139 mmol/L (136-145); TOT PROT 6.9 g/dl (6.4-8.2)
[2018-06-11 15:19] LABS: EPI CELLS RARE /HPF (FEW); URINE MUCUS RARE
[2018-06-11 15:22] LABS: BASO % 0.4 % (0-2.0); EOS % 0.6 % (0-4.5); HEMATOCRIT 38.4 % (32.4-45.2); HEMOGLOBIN 13.3 GM/dL (10.7-15.3); LYMPH % 23.8 % (8-40); MCH 28.9 pg (25.7-33.7); MCHC 34.6 g/dl (32.0-36.0); MEAN CELL VOLUME 83.4 fl (80-96); MEAN PLT VOLUME 8.5 fl (7.5-11.1); MONO % 5.7 % (3.8-10.2); NEUT % 69.5 % (42.8-82.8); PLATELET COUNT 207 K/MM3 (134-434); RDW 11.9 % (11.6-15.6); WHITE BLOOD COUNT 6.2 K/mm3 (4.0-10.0)
== END 2018-06-11 16:10 | disposition home or self-care (01) ==
LOC: JER 13:21
PROC: 3E033GC Introduction of Other Therapeutic Substance into Peripheral Vein, Percutaneous Approach (ICD-10-PCS; principal; 2018-06-11)
PROC: 3E0337Z Introduction of Electrolytic and Water Balance Substance into Peripheral Vein, Percutaneous Approach (ICD-10-PCS; 2018-06-11)
DX: O26.891 Other specified pregnancy related conditions, first trimester (principal); Z3A.10 10 weeks gestation of pregnancy; R11.2 Nausea with vomiting, unspecified; F17.210 Nicotine dependence, cigarettes, uncomplicated; F41.8 Other specified anxiety disorders; D64.9 Anemia, unspecified
CPT/HCPCS: 36415; 80053; 81003; 81015; 83690; 83735; 85025; 87086; 96361; 96365; 96375; 99282-25; J7030

== ENCOUNTER 2022-11-06 16:35 | Emergency (ER) | payer OTHER ==
[2022-11-06 16:52] VITALS: BP 123/75; PULSE 99; RESP 19; TEMP 98.3; BMI 23.3
== END 2022-11-06 19:37 | disposition home or self-care (01) ==
LOC: JER 16:35
DX: Z77.120 Contact with and (suspected) exposure to mold (toxic) (principal)
CPT/HCPCS: 93005; 93010; 99283-25